=== PATIENT | male | born 1930 | race Caucasian/White ===

== ENCOUNTER → 2017-12-23 | Outpatient (CLI) | payer MEDICARE, MEDICAID ==
[~2017-12-23] MED LIST: ACET-2267 PO; AMLO5TAB2 PO; ASP325T PO; ASPI-586 PO; ATEN25TA PO; ATOR20TA66 PO; BISO1TAB3 PO; CHOL500044 PO; CLOP75TA PO; HYDR-757 PO; ISOS30TA7 PO; LANS15CA PO; LISI-556 PO; MECL25TA56 PO; NAPR-243 PO; OMEG-160 PO; RAMI10CA PO; [UNRECOGNIZED DRUG - REMARK]; [UNRECOGNIZED DRUG - REMARK]
--- NOTE | 2017-12-23 16:21 | Diagnostic Imaging Report ---
INDICATION: Chest pain. TIME OF EXAM: 3:43 p.m. COMPARISON: Comparison is made with prior study from 05/04/2010. FINDINGS: Tiny calcified nodules are noted in both lungs consistent with granulomas. No infiltrates are seen. There is no failure. No effusion or pneumothorax is identified. IMPRESSION: No acute cardiopulmonary process is detected. Dictated by: Dictated on workstation # [id number]
== END ==
LOC: RAD 15:12
PROVIDERS: ATTEND Internal Medicine
DX: R06.00 Dyspnea, unspecified (principal); R07.9 Chest pain, unspecified
CPT/HCPCS: 71046

== ENCOUNTER 2018-10-10 22:48 | Emergency (ER) | payer MEDICARE ==
[~2018-10-10] VITALS: Ht 167.6 cm; Wt 70.3 kg
[~2018-10-10 22:48] MED LIST changes: +HYDR-4226 PO; -HYDR-757 PO
[2018-10-10] MEDS ORDERED: RX-ONDANSETRON 4 MG ODT (ZOFRAN) PPK #4 PO STA (23:53)
[2018-10-11] MEDS ORDERED: TETANUS,DIPTH,PERTUSS P/F (BOOSTRIX) 0.5 ML VIAL IM ONE
[2018-10-11] MEDS ORDERED: LIDOCAINE/EPI 2% 1:100,00 (XYLOCAINE) 20 ML VIAL ONE (00:22)
--- NOTE | 2018-10-11 00:45 | NUR ---
6 MARK TO LEFT HAND PER DR. FUENTES.
[2018-10-11] MEDS ORDERED: SULF1TAB35 PO ×2 (00:48→00:50)
[2018-10-11] MEDS ORDERED: RX-TRIMETH/SULFA. 160-800 MG (BACTRIM DS) TAB PPK#2 PO STA (00:48)
--- NOTE | 2018-10-11 00:50 | ED Upper Extremity ---
General Chief Complaint: Laceration Stated Complaint: L HAND LAC Allergies and Home Medications Allergies Coded Allergies: Meperidine (Unverified Allergy, Unknown, 05/04/10) Penicillins (Unverified Allergy, Unknown, 09/06/11) Home Medications Acetaminophen 500 Mg Tablet, 500 MG PO QID, (Reported) Amlodipine Besylate 5 Mg Tablet, 5 MG PO DAILY, (Reported) Aspirin 81 Mg Tablet.dr, 81 MG PO DAILY, (Reported) Atenolol 25 Mg Tablet, 25 MG PO DAILY, (Reported) Atorvastatin Calcium 20 Mg Tablet, 20 MG PO DAILY, (Reported) Cholecalciferol (Vitamin D3) 5,000 Unit Tablet, 5,000 UNIT PO DAILY, (Reported) Clopidogrel Bisulfate 75 Mg Tablet, 1 EACH PO DAILY, (Reported) Hydrocodone/Acetaminophen 1 Each Tablet, 1 EACH PO HS PRN for PAIN Prescribed by: KELL VINCENT MD on 03/02/15 1700 Isosorbide Dinitrate 30 Mg Tablet, 1 EACH PO DAILY, (Reported) Lansoprazole 15 Mg Capsule.dr, 15 MG PO DAILY, (Reported) Lisinopril 5 Mg Tablet, 5 MG PO DAILY, (Reported) [place]-3/Dha/Epa/Fish Oil 1 Each Capsule, 2 EACH PO DAILY, (Reported) ["Leg Cramp Pills"] , 4 TAB DAILY, (Reported) Past Yxwsyea-Yeafra-Bikhqg Hx Patient Social History Recent Foreign Travel: No Contact w/Someone Who Travel: No Past Medical History Reproductive Disorders: No Physical Exam Vital Signs Capillary Refill : Height, Weight, BMI Height: 5'6" Weight: 170lbs. 11.0oz. 77.018379vp; BMI Method:Stated Progress/Results/Core Measures Results/Orders My Orders Orders - CHARLES FUENTES DO Rx-Ondansetron Po (Rx-Zofran Po) (10/10/18 23:53) Dipht,Pertuss(Acell),Tet Adult (Boostrix (10/11/18 00:00) Hand, Left, 3 Views (10/11/18 00:01) Lidocaine/Epi 2% 1:100,000 (Xylocaine/Ep (10/11/18 00:22) Wound Dressing-Ed (10/11/18 00:45) Medications Given in ED Current Medications Medications Dose Ordered Sig/Graciela Route Start Time Stop Time Status Last Admin Dose Admin Diphtheria/ Tetanus/Acell Pertussis 0.5 ml ONCE ONCE IM 10/11/18 00:00 10/11/18 00:01 DC 10/11/18 00:29 0.5 ML Departure Impression Primary Impression: LEFT HAND LACERATION AND CONTUSION Additional Impression: Kbmwdacqrr-rgxnzwelp-voxvsky (DPT) vaccination administered at current visit Disposition: HOME, SELF-CARE Condition: Stable Departure-Patient Inst. Referrals: LILIANA IRBY MD (PCP/Family) Primary Care Physician Patient Instructions: Laceration Repair With [place] (DC), Diphtheria and Tetanus Toxoids, and Acellular Pertussis Vaccine Add. Discharge Instructions: ICE TO AREA AT 20 MINUTE INTERVALS FOR FIRST 24 HOURS CLEAN WOUND TWICE A DAY WITH ANTIBACTERIAL SOAP AND WATER, OTHERWISE KEEP CLEAN AND DRY MARK OUT IN 10 DAYS--RETURN TO ER FOR REMOVAL TYLENOL NEEDED FOR PAIN FOLLOW UP WITH YOUR DR NEEDED All discharge instructions reviewed with patient and/or family. Voiced understanding. Scripts Sulfamethoxazole/Trimethoprim (Bactrim Ds Tablet) 1 Each Tablet 1 EACH PO BID, #20 TAB Prov: CHARLES FUENTES DO 10/11/18 CHARLES FUENTES DO Oct 11, 2018 00:50
[2018-10-11 01:10] VITALS: BP 165/75
--- NOTE | 2018-10-11 07:35 | Diagnostic Imaging Report ---
EXAM: HAND, LEFT, 3 VIEWS INDICATION: Dorsal left hand trauma with laceration. COMPARISON: None. FINDINGS: No fracture or malalignment. No suspicious osteoblastic or lytic lesions. No radiopaque foreign bodies. There are advanced degenerative changes throughout the carpal bones and radial ulnar joint. Chronic left ulnar styloid fracture. Mild degenerative changes within the IP joints. IMPRESSION: No acute radiographic findings in the left hand. Dictated by: Dictated on workstation # [id number]
== END 2018-10-11 01:14 | disposition home or self-care (01) ==
LOC: EDUNIT# 22:48 → ER 22:49
DX: S61.412A Laceration without foreign body of left hand, initial encounter (principal); Z88.0 Allergy status to penicillin; Z88.8 Allergy status to other drugs, medicaments and biological substances; Z79.82 Long term (current) use of aspirin; Z79.02 Long term (current) use of antithrombotics/antiplatelets; Z23 Encounter for immunization; X58.XXXA Exposure to other specified factors, initial encounter
CPT/HCPCS: 73130; 90471; 90715

== ENCOUNTER 2018-10-21 08:30 | Emergency (ER) | payer MEDICARE ==
[~2018-10-21] VITALS: Ht 167.6 cm; Wt 70.6 kg
[~2018-10-21 08:30] MED LIST changes: +SULF1TAB35 PO
--- OUTSIDE RECORDS SUMMARY | 2018-10-21 08:36 | XMS REPORT | Continuity of Care Document ---
Author Organization Unknown Address Unknown Allergies Active Description Code Type Severity Reaction Onset Reported/Identified Relationship to Patient Clinical Status Yes meperidine [id number] Drug Allergy Unknown N/A 05/04/2010 Yes Penicillins [id number] Drug Allergy Unknown N/A 09/06/2011 Medications There is no data. Problems Date Dx Coded Attending Type Code Diagnosis Diagnosed By 05/07/2010 Ot 386.30 LABYRINTHITIS NOS 05/07/2010 Ot 401.9 HYPERTENSION NOS 05/07/2010 Ot 443.9 PERIPH VASCULAR DIS NOS 05/07/2010 Ot 496 CHR AIRWAY OBSTRUCT NEC 05/07/2010 Ot 593.9 RENAL URETERAL DIS NOS 05/07/2010 Ot V15.82 HISTORY OF TOBACCO USE 03/02/2015 MELISA ARREOLA, KELL Oden Ot F17.211 03/02/2015 MELISA ARREOLA, KELL Oden Ot M25.551 03/02/2015 MELISA ARREOLA, KELL Oden Ot M51.16 03/02/2015 MELISA ARREOLA, KELL Oden Ot Z79.899 03/18/2015 SANYA PINEDA APRN Ot M54.30 12/26/2017 MAHAMED ARREOLA, LILIANA Carlos Ot R06.00 DYSPNEA, UNSPECIFIED 12/26/2017 LILIANA IRBY MD Ot R07.9 CHEST PAIN, UNSPECIFIED 12/29/2017 Ot N64.4 MASTODYNIA 12/29/2017 Ot N64.4 MASTODYNIA 12/29/2017 Ot N64.4 MASTODYNIA 12/29/2017 Ot R06.00 DYSPNEA, UNSPECIFIED 01/06/2018 LILIANA IRBY MD Ot N62 HYPERTROPHY OF BREAST 01/06/2018 LILIANA IRBY MD Ot N64.4 MASTODYNIA 01/25/2018 LILIANA IRBY MD Ot R06.00 DYSPNEA, UNSPECIFIED 01/25/2018 LILIANA IRBY MD Ot R07.9 CHEST PAIN, UNSPECIFIED 01/25/2018 LILIANA IRBY MD Ot N62 HYPERTROPHY OF BREAST 01/25/2018 LILIANA IRBY MD Ot N64.4 MASTODYNIA 02/01/2018 MAHAMED ARREOLA, LILIANA Carlos Ot R06.00 DYSPNEA, UNSPECIFIED 02/01/2018 LILIANA IRBY MD Ot R07.9 CHEST PAIN, UNSPECIFIED 02/01/2018 LILIANA IRBY MD Ot N62 HYPERTROPHY OF BREAST 02/01/2018 LILIANA IRBY MD Ot N64.4 MASTODYNIA 02/09/2018 LILIANA IRBY MD Ot R06.00 DYSPNEA, UNSPECIFIED 02/09/2018 LILIANA IRBY MD Ot R07.9 CHEST PAIN, UNSPECIFIED 02/09/2018 LILIANA IRBY MD Ot N62 HYPERTROPHY OF BREAST 02/09/2018 LILIANA IRBY MD Ot N64.4 MASTODYNIA 10/11/2018 [place] DO, CHARLES K Ot S61.412A LACERATION WITHOUT FOREIGN BODY OF LEFT 10/11/2018 GINA DOROBERTOA K Ot X58.XXXA EXPOSURE TO OTHER SPECIFIED FACTORS, INI 10/11/2018 GINA DOROBERTOA K Ot Z23 ENCOUNTER FOR IMMUNIZATION 10/11/2018 GINA DOROBERTOA K Ot Z79.02 SEWER CLEANER (CURRENT) USE OF ANTITHROMBOTI 10/11/2018 GINA DO, CHARLES K Ot Z79.82 SEWER CLEANER (CURRENT) USE OF ASPIRIN 10/11/2018 GINA DO CHARLES K Ot Z88.0 ALLERGY STATUS TO PENICILLIN 10/11/2018 GINA DO, CHARLES K Ot Z88.8 ALLERGY STATUS TO OTH DRUG/MEDS/BIOL SUB 10/16/2018 GINA DOCHARLES Ot S61.412A LACERATION WITHOUT FOREIGN BODY OF LEFT 10/16/2018 [place] DO CHARLES K Ot X58.XXXA EXPOSURE TO OTHER SPECIFIED FACTORS, INI 10/16/2018 GINA DO CHARLES K Ot Z23 ENCOUNTER FOR IMMUNIZATION 10/16/2018 GINA DO CHARLES K Ot Z79.02 SNF (CURRENT) USE OF ANTITHROMBOTI 10/16/2018 GINA DO CHARLES K Ot Z79.82 SEWER CLEANER (CURRENT) USE OF ASPIRIN 10/16/2018 UPPER TRACT DO CHARLES K Ot Z88.0 ALLERGY STATUS TO PENICILLIN 10/16/2018 GINA DO, CHARLES K Ot Z88.8 ALLERGY STATUS TO OTH DRUG/MEDS/BIOL SUB Procedures There is no data. Results There is no data. Encounters ACCT No. Visit Date/Time Discharge Status Pt. Type Provider Facility Loc./Unit Complaint [id number] 10/10/2018 22:49:00 10/11/2018 01:14:00 DIS Emergency GINA HERNANDEZ CHARLES Gonzalez [facility] ER L HAND LAC [id number] 01/05/2018 08:37:00 01/05/2018 23:59:59 CLS Outpatient LILIANA IRBY MD [facility] RAD BREAST PAIN [id number] 12/23/2017 15:12:00 12/23/2017 23:59:59 CLS Outpatient LILIANA IRBY MD [facility] RAD DYSPNEA [id number] 03/05/2015 14:43:00 03/18/2015 12:04:00 DIS Outpatient SANYA PINEDA APRN [facility] REHAB [id number] 03/02/2015 13:19:00 03/02/2015 17:06:00 DIS Emergency KELL VINCENT MD [facility] ER [id number] 01/05/2018 09:15:00 Document Registration [id number] 12/28/2017 16:22:00 Document Registration [id number] 05/04/2010 06:29:00 Document Registration
[2018-10-21 08:44] VITALS: BP 0/0
== END 2018-10-21 08:43 | disposition home or self-care (01) ==
LOC: EDUNIT# 08:30 → ER 08:31
DX: S61.412D Laceration without foreign body of left hand, subsequent encounter (principal); X58.XXXD Exposure to other specified factors, subsequent encounter

== ENCOUNTER 2018-11-08 15:01 | Emergency (ER) | payer MEDICARE ==
[~2018-11-08] VITALS: Ht 167.6 cm; Wt 67.4 kg
--- OUTSIDE RECORDS SUMMARY | 2018-11-08 15:06 | XMS REPORT | Continuity of Care Document ---
Author Organization Unknown Address Unknown Allergies Active Description Code Type Severity Reaction Onset Reported/Identified Relationship to Patient Clinical Status Yes meperidine [id number] Drug Allergy Unknown N/A 05/04/2010 Yes Penicillins [id number] Drug Allergy Unknown N/A 09/06/2011 Medications There [...] LILIANA IRBY MD Ot N64.4 MASTODYNIA 10/11/2018 GINA DO, CHARLES K Ot S61.412A LACERATION WITHOUT FOREIGN BODY OF LEFT 10/11/2018 [place] DO, CHARLES K Ot X58.XXXA EXPOSURE TO OTHER SPECIFIED FACTORS, INI 10/11/2018 GINA DO CHARLES K Ot Z23 ENCOUNTER FOR IMMUNIZATION 10/11/2018 [place] DO CHARLES K Ot Z79.02 WIRE TEMPERER (CURRENT) USE OF ANTITHROMBOTI 10/11/2018 GINA DO, CHARLES K Ot Z79.82 WIRE TEMPERER (CURRENT) USE OF ASPIRIN 10/11/2018 [place] DO CHARLES K Ot Z88.0 ALLERGY STATUS TO PENICILLIN 10/11/2018 [place] DO, CHARLES K Ot Z88.8 ALLERGY STATUS TO OTH DRUG/MEDS/BIOL SUB 10/16/2018 [place] DOROBERTOA K Ot S61.412A LACERATION WITHOUT FOREIGN BODY OF LEFT 10/16/2018 [place] DO, CHARLES K Ot X58.XXXA EXPOSURE TO OTHER SPECIFIED FACTORS, INI 10/16/2018 GINA DO CHARLES K Ot Z23 ENCOUNTER FOR IMMUNIZATION 10/16/2018 GINA DO, CHARLES K Ot Z79.02 [facility] (CURRENT) USE OF ANTITHROMBOTI 10/16/2018 GINA DO, CHARLES K Ot Z79.82 WIRE TEMPERER (CURRENT) USE OF ASPIRIN 10/16/2018 [place] DO, CHARLES K Ot Z88.0 ALLERGY STATUS TO PENICILLIN 10/16/2018 GINA DO, CHARLES K Ot Z88.8 ALLERGY STATUS TO OTH DRUG/MEDS/BIOL SUB 10/25/2018 KELL VINCENT MD Ot S61.412D LACERATION WITHOUT FOREIGN BODY OF LEFT 10/25/2018 KELL VINCENT MD Ot X58.XXXD EXPOSURE TO OTHER SPECIFIED FACTORS, SUB Procedures There is no data. Results There is no data. Encounters ACCT No. Visit Date/Time Discharge Status Pt. Type Provider Facility Loc./Unit Complaint [id number] 10/21/2018 08:31:00 10/21/2018 08:43:00 DIS Outpatient KELL VINCENT MD [facility] ER SUTURE REMOVAL [id number] 10/10/2018 22:49:00 10/11/2018 01:14:00 DIS Emergency CHARLES FUENTES DO [facility] ER L HAND LAC [id number] 01/05/2018 08:37:00 01/05/2018 23:59:59 CLS Outpatient LILIANA IRBY MD [facility] RAD BREAST PAIN [id number] 12/23/2017 15:12:00 12/23/2017 23:59:59 CLS Outpatient LILIANA IRBY MD [facility] RAD DYSPNEA [id number] 03/05/2015 14:43:00 03/18/2015 12:04:00 DIS Outpatient SANYA PINEDA APRN [facility] REHAB [id number] 03/02/2015 13:19:00 03/02/2015 17:06:00 DIS Emergency KELL VINCENT MD [facility] ER [id number] 01/05/2018 09:15:00 Document Registration [id number] 12/28/2017 16:22:00 Document Registration [id number] 05/04/2010 06:29:00 Document Registration
--- NOTE | 2018-11-08 15:18 | ED Upper Extremity ---
General Chief Complaint: Upper Extremity Stated Complaint: L ARM SWELLING Nursing Triage Note: PT STATES HE WOKE UP TUESDAY MORNING WITH SWELLING TO THE LT HAND AND PAIN INTO THE FOREARM. DENIES ANY TRAUMA. Nursing Sepsis Screen: No Definite Risk Source: patient Exam Limitations: no limitations History of Present Illness Date Seen by Provider: Nov 08, 2018 Time Seen by Provider: 15:16 Initial Comments This hemodialysis patient presents to ER with reports of left wrist and hand pain and swelling. This began 2 days ago, Tuesday morning upon awakening. Does not recall any injury. He's been afebrile. He just finished dialysis prior to coming here. Onset: just prior to arrival Severity: moderate Pain/Injury Location: left hand Method of Injury: unknown Modifying Factors: Worse With Movement Allergies and Home Medications Allergies Coded Allergies: Penicillins (Unverified Allergy, Unknown, 09/06/11) meperidine (Unverified Allergy, Unknown, 05/04/10) Home Medications Acetaminophen 500 Mg Tablet, 500 MG PO QID, (Reported) Amlodipine Besylate 5 Mg Tablet, 5 MG PO DAILY, (Reported) Aspirin 81 Mg Tablet.dr, 81 MG PO DAILY, (Reported) Atenolol 25 Mg Tablet, 25 MG PO DAILY, (Reported) Atorvastatin Calcium 20 Mg Tablet, 20 MG PO DAILY, (Reported) Cholecalciferol (Vitamin D3) 5,000 Unit Tablet, 5,000 UNIT PO DAILY, (Reported) Clopidogrel Bisulfate 75 Mg Tablet, 1 EACH PO DAILY, (Reported) Hydrocodone/Acetaminophen 1 Each Tablet, 1 EACH PO HS PRN for PAIN Prescribed by: KELL VINCENT MD on 03/02/15 1700 Isosorbide Dinitrate 30 Mg Tablet, 1 EACH PO DAILY, (Reported) Lansoprazole 15 Mg Capsule.dr, 15 MG PO DAILY, (Reported) Lisinopril 5 Mg Tablet, 5 MG PO DAILY, (Reported) [place]-3/Dha/Epa/Fish Oil 1 Each Capsule, 2 EACH PO DAILY, (Reported) Prednisone 20 Mg Tab, 40 MG PO DAILY Prescribed by: BEVERLEY CONTE on 11/08/18 170 Sulfamethoxazole/Trimethoprim 1 Each Tablet, 1 EACH PO BID Prescribed by: CHARLES FUENTES on 10/11/18 0050 ["Leg Cramp Pills"] , 4 TAB DAILY, (Reported) Patient Home Medication List Home Medication List Reviewed: Yes Review of Systems Constitutional: see HPI EENTM: see HPI Respiratory: no symptoms reported Cardiovascular: no symptoms reported Genitourinary: no symptoms reported Musculoskeletal: see HPI Skin: no symptoms reported Psychiatric/Neurological: No Symptoms Reported Past Ljcyivx-Yqbzby-Urxwld Hx Patient Social History Recent Foreign Travel: No Contact w/Someone Who Travel: No Recent Infectious Disease Expo: No Recent Hopitalizations: No Immunizations Up To Date Tetanus Booster (TDap): Less than 5yrs Past Medical History Surgeries: Yes (BONE SPURS ON BILAT FEET, CYST REMOVED FROM LOWER JAW, ARM A CHILD) Respiratory: Yes COPD Cardiac: Yes ("BLOCKED CAROTIDS") High Cholesterol, Irregular Heartbeat Neurological: Yes Neuropathy Reproductive Disorders: No Genitourinary: Yes Dialysis Gastrointestinal: Yes Musculoskeletal: Yes Arthritis, Gout Endocrine: No HEENT: No Cancer: No Psychosocial: No Integumentary: No Blood Disorders: No Physical Exam Vital Signs Vital Signs - First Documented 11/08/18 15:09 Temp 97.8 Pulse 68 Resp 20 B/P (MAP) 185/76 (112) Pulse Ox 95 O2 Delivery Room Air Capillary Refill : Greater Than 3 Seconds Height, Weight, BMI Height: 5'6" Weight: 148lbs. 11.0oz. 67.142567ly; 25.01 BMI Method:Stated General Appearance: WD/WN, no apparent distress Respiratory: no respiratory distress, no accessory muscle use Shoulder: normal inspection, non-tender Elbow/Forearm: normal inspection, non-tender Wrist: Yes limited ROM, Yes pain, Yes soft tissue tenderness, Yes swelling Hand: Left, soft tissue tenderness, swelling Neurologic/Psychiatric: alert, normal mood/affect, oriented x 3 Skin: normal color, warm/dry Progress/Results/Core Measures Results/Orders Lab Results Laboratory Tests Test 11/08/18 16:14 Range/Units White Blood Count 6.2 4.3-11.0 10^3/uL Red Blood Count 3.87 L 4.35-5.85 10^6/uL Hemoglobin 11.8 L 13.3-17.7 G/DL Hematocrit 35 L 40-54 % Mean Corpuscular Volume 91 80-99 FL Mean Corpuscular Hemoglobin 30 25-34 PG Mean Corpuscular Hemoglobin Concent 34 32-36 G/DL Red Cell Distribution Width 16.0 H 10.0-14.5 % Platelet Count 245 130-400 10^3/uL Mean Platelet Volume 11.7 H 7.4-10.4 FL Neutrophils (%) (Auto) 67 42-75 % Lymphocytes (%) (Auto) 17 12-44 % Monocytes (%) (Auto) 12 0-12 % Eosinophils (%) (Auto) 4 0-10 % Basophils (%) (Auto) 1 0-10 % Neutrophils # (Auto) 4.1 1.8-7.8 X 10^3 Lymphocytes # (Auto) 1.1 1.0-4.0 X 10^3 Monocytes # (Auto) 0.7 0.0-1.0 X 10^3 Eosinophils # (Auto) 0.2 0.0-0.3 10^3/uL Basophils # (Auto) 0.1 0.0-0.1 10^3/uL My Orders Orders - BEVERLEY CONTE APRN Forearm, Left, 2 Views (11/08/18 15:08) Hand, Left, 3 Views (11/08/18 15:08) Cbc With Automated Diff (11/08/18 16:08) Us Venous Upper Ext Lt (11/08/18 16:08) Prednisone Tablet (Deltasone Tablet) (11/08/18 17:15) Vital Signs/I&O 11/08/18 15:09 Temp 97.8 Pulse 68 Resp 20 B/P (MAP) 185/76 (112) Pulse Ox 95 O2 Delivery Room Air Blood Pressure Mean: 112 Departure Communication (Admissions) 1708-since tomorrow is november I will order a double dose of prednisone here, 40 mg to be taken today and he can pocket 40 mg and take them tomorrow since his pharmacy will be closed. I discussed with him the likely diagnosis of gout/pseudogout with an alternative diagnosis of septic joint though this with the far less common. Discussed with him the way to determine this is distinctly needle into the joint. He does not want to do that at this time, will treat for gout/pseudogout with steroids given his renal failure and he'll return for any redness fevers or worsening swelling. At that point (if it worsens), he would agree to arthrocentesis. Impression Primary Impression: Arthritis of left wrist Disposition: 01 HOME, SELF-CARE Condition: Stable Departure-Patient Inst. Decision time for Depature: 17:01 Referrals: LILIANA IRBY MD (PCP/Family) Primary Care Physician Patient Instructions: Arthritis and Exercise Add. Discharge Instructions: 1. Return to ER for any fevers, increased swelling or redness. Follow-up with your doctor on Tuesday for recheck. Return to ER for any worsening promptly. Take steroids as directed for total of 3 days. We've given you 2 days worth here in the emergency room, the prescription I sent to your pharmacy is actually for 3 days worth but you'll only need 1 day. He should only take steroids for 3 days. All discharge instructions reviewed with patient and/or family. Voiced understanding. Scripts Prednisone (Prednisone) 20 Mg Tab 40 MG PO DAILY, #6 TAB 0 Refills Prov: BEVERLEY CONTE APRN 11/08/18 BEVERLEY CONTE APRN Nov 08, 2018 15:18
--- NOTE | 2018-11-08 16:07 | Diagnostic Imaging Report ---
INDICATION: Left forearm pain. EXAMINATION: AP and lateral views of the left forearm were obtained. FINDINGS: No fracture or acute bony abnormality is seen. There is no erosive bony lesion. There are underlying degenerative changes of the radiocarpal joint. IMPRESSION: No acute abnormality of the left forearm. Chronic changes at the radiocarpal joint. Dictated by: Dictated on workstation # [id number]
--- NOTE | 2018-11-08 16:07 | Diagnostic Imaging Report ---
INDICATION: Swelling and pain of the left hand. COMPARISON: None. FINDINGS: Three views of the left hand show no fractures, dislocations, or other acute bony abnormalities identified. 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 Otherwise, joint spaces are well maintained throughout. There is mild generalized soft tissue swelling. No radiopaque foreign bodies are identified. IMPRESSION: 1. No acute fracture or dislocation of the left hand. 2. Moderate osteoarthritic changes. Dictated by: Dictated on workstation # [id number]
[2018-11-08 16:22] LABS: BASOPHILS # (AUTO) 0.1 10^3/uL (0.0-0.1); BASOPHILS % (AUTO) 1 % (0-10); EOSINOPHILS # (AUTO) 0.2 10^3/uL (0.0-0.3); EOSINOPHILS % (AUTO) 4 % (0-10); HEMATOCRIT 35 % (40-54); HEMOGLOBIN 11.8 G/DL (13.3-17.7); LYMPHOCYTES # (AUTO) 1.1 X 10^3 (1.0-4.0); LYMPHOCYTES % (AUTO) 17 % (12-44); MEAN CORPUSCULAR HGB CONC 34 G/DL (32-36); MEAN CORPUSCULAR VOLUME 91 FL (80-99); MEAN PLATELET VOLUME 11.7 FL (7.4-10.4); MONOCYTES # (AUTO) 0.7 X 10^3 (0.0-1.0); MONOCYTES % (AUTO) 12 % (0-12); NEUTROPHILS # (AUTO) 4.1 X 10^3 (1.8-7.8); NEUTROPHILS % (AUTO) 67 % (42-75); PLATELET COUNT 245 10^3/uL (130-400); WHITE BLOOD COUNT 6.2 10^3/uL (4.3-11.0)
[2018-11-08 16:23] LABS: MEAN CORPUSCULAR HEMOGLOBIN 30 PG (25-34)
[2018-11-08] MEDS ORDERED: PRD20T PO (17:02)
--- NOTE | 2018-11-08 17:14 | Diagnostic Imaging Report ---
PROCEDURE: US venous upper extremity, left. TECHNIQUE: Multiple realtime grayscale images were obtained of left upper extremity in various projections. Additional spectral analysis and color Doppler duplex images were also obtained. INDICATION: Left arm pain and swelling. FINDINGS: The left internal jugular vein as well as left subclavian and axillary vein are patent. The brachial vein is patent. The radial and ulnar veins are patent. Cephalic vein, as well as basilic vein, are patent. No thrombus is seen. There is no fluid collection. IMPRESSION: No evidence of left upper extremity DVT. Dictated by: Dictated on workstation # [id number]
[2018-11-08] MEDS ORDERED: predniSONE 20 MG TAB PO ONE ×2 (17:15)
[2018-11-08 17:19] VITALS: BP 174/82
== END 2018-11-08 17:18 | disposition home or self-care (01) ==
LOC: EDUNIT# 15:01 → ER 15:02
DX: M19.032 Primary osteoarthritis, left wrist (principal); J44.9 Chronic obstructive pulmonary disease, unspecified; E78.00 Pure hypercholesterolemia, unspecified; G62.9 Polyneuropathy, unspecified; Z99.2 Dependence on renal dialysis; Z88.0 Allergy status to penicillin; Z88.5 Allergy status to narcotic agent; Z79.82 Long term (current) use of aspirin; Z79.02 Long term (current) use of antithrombotics/antiplatelets
CPT/HCPCS: 36415; 73090; 73130; 85025

== ENCOUNTER 2020-05-03 09:54 | Emergency (ER) | payer MEDICARE ==
[~2020-05-03] VITALS: Ht 167.7 cm; Wt 72.6 kg
[~2020-05-03 09:54] MED LIST changes: +PRD20T PO
[2020-05-03 10:20] VITALS: BP 177/74
--- NOTE | 2020-05-03 10:37 | ED General ---
General Stated Complaint: FEVER,COUGH,BEEN EXPOSED Source of Information: Patient Exam Limitations: No Limitations History of Present Illness Date Seen by Provider: May 03, 2020 Time Seen by Provider: 10:30 Initial Comments This is an 89-year-old male who presents to the emergency room today with a chief complaint of wanting a Covid test. Patient states his son recently tested positive and he has been around him and his family has been encouraging him to get a Covid test. Patient has absolutely 0 symptoms at this time. He denies any earache, sore throat, nasal congestion. He denies cough, shortness of b reath, chest pain. He denies abdominal pain, nausea, vomiting, diarrhea. Patient is completely asymptomatic. No other complaints of illness or injury are noted. All other review of systems reviewed and negative except as stated above. Timing/Duration: Other Associated Systoms: Denies Symptoms Allergies and Home Medications Allergies Coded Allergies: Penicillins (Unverified Allergy, Unknown, 09/06/11) meperidine (Unverified Allergy, Unknown, 05/04/10) Home Medications Acetaminophen 500 Mg Tablet, 500 MG PO QID, (Reported) Amlodipine Besylate 5 Mg Tablet, 5 MG PO DAILY, (Reported) Aspirin 81 Mg Tablet.dr, 81 MG PO DAILY, (Reported) Atenolol 25 Mg Tablet, 25 MG PO DAILY, (Reported) Atorvastatin Calcium 20 Mg Tablet, 20 MG PO DAILY, (Reported) Cholecalciferol (Vitamin D3) 5,000 Unit Tablet, 5,000 UNIT PO DAILY, (Reported) Clopidogrel Bisulfate 75 Mg Tablet, 1 EACH PO DAILY, (Reported) Hydrocodone/Acetaminophen 1 Each Tablet, 1 EACH PO HS PRN for PAIN Prescribed by: KELL VINCENT MD on 03/02/15 170 Isosorbide Dinitrate 30 Mg Tablet, 1 EACH PO DAILY, (Reported) Lansoprazole 15 Mg Capsule.dr, 15 MG PO DAILY, (Reported) Lisinopril 5 Mg Tablet, 5 MG PO DAILY, (Reported) [place]-3/Dha/Epa/Fish Oil 1 Each Capsule, 2 EACH PO DAILY, (Reported) Prednisone 20 Mg Tab, 40 MG PO DAILY Prescribed by: BEVERLEY CONTE on 11/08/18 170 Sulfamethoxazole/Trimethoprim 1 Each Tablet, 1 EACH PO BID Prescribed by: CHARLES FUENTES on 10/11/18 0050 ["Leg Cramp Pills"] , 4 TAB DAILY, (Reported) Patient Home Medication List Home Medication List Reviewed: Yes Review of Systems Review of Systems Constitutional: no symptoms reported, see HPI EENTM: no symptoms reported Respiratory: no symptoms reported Cardiovascular: no symptoms reported Gastrointestinal: no symptoms reported Genitourinary: no symptoms reported Musculoskeletal: no symptoms reported Skin: no symptoms reported All Other Systems Reviewed Negative Unless Noted: Yes Past Qgumghc-Ccdbil-Ooedpu Hx Patient Social History Type Used: Cigars, Cigarettes, Pipe Former Smoker, Quit: Nov 08, 2008 Recent Hopitalizations: No Immunizations Up To Date Tetanus Booster (TDap): Unknown Seasonal Allergies Seasonal Allergies: No Past Medical History Surgeries: Yes (BONE SPURS ON BILAT FEET, CYST REMOVED FROM LOWER JAW, ARM A CHILD) Orthopedic Respiratory: Yes COPD Cardiac: Yes Coronary Artery Disease, High Cholesterol, Hypertension Neurological: No Neuropathy Reproductive Disorders: No Genitourinary: Yes Dialysis Gastrointestinal: Yes Musculoskeletal: No Arthritis, Gout Endocrine: No HEENT: No Cancer: No Psychosocial: No Integumentary: No Blood Disorders: No Physical Exam Vital Signs Vital Signs - First Documented 05/03/20 10:20 Temp 36.9 Pulse 64 Resp 20 B/P (MAP) 177/74 (108) Pulse Ox 97 O2 Delivery Room Air Capillary Refill : Height, Weight, BMI Height: 5'6" Weight: 148lbs. 11.0oz. [id number]; 25.01 BMI Method:Stated General Appearance: No Apparent Distress, WD/WN Eyes: Bilateral Eye Normal Inspection, Bilateral Eye PERRL, Bilateral Eye EOMI Neck: Full Range of Motion, Normal Inspection, Non Tender, Supple Respiratory: Lungs Clear, Normal Breath Sounds Cardiovascular: Regular Rate, Rhythm Gastrointestinal: Normal Bowel Sounds, Non Tender, Soft Back: Normal Inspection Extremity: Normal Capillary Refill, Normal Inspection, Normal Range of Motion, Non Tender Neurologic/Psychiatric: Alert, Oriented x3, No Motor/Sensory Deficits, Normal Mood/Affect, spinner fixer II-XII Norm as Tested Skin: Normal Color, Warm/Dry Progress/Results/Core Measures Suspected Sepsis SIRS Temperature: Pulse: Respiratory Rate: Blood Pressure / Mean: Results/Orders Lab Results Laboratory Tests Test 05/03/20 10:28 Range/Units Coronavirus 2019 (JEN) Positive H Negative My Orders Orders - GINETTE SYKES MD Covid 19 Inhouse Test (05/03/20 10:37) Vital Signs/I&O 05/03/20 10:20 Temp 36.9 Pulse 64 Resp 20 B/P (MAP) 177/74 (108) Pulse Ox 97 O2 Delivery Room Air Capillary Refill : Progress Note : Progress Note Patient was noted to be Covid positive. Patient is counseled on quarantine. He verbalizes understanding all questions are sought and answered he is stable for discharge. Departure Impression Primary Impression: Coronavirus infection Disposition: HOME, SELF-CARE Condition: Stable Departure-Patient Inst. Decision time for Depature: 11:51 Referrals: LILIANA IRBY MD (PCP/Family) Primary Care Physician Patient Instructions: Coronavirus Disease 2019 (COVID-19) Overview Add. Discharge Instructions: Drink plenty of fluids to stay well-hydrated. Follow-up with your primary care physician this week. Return to the emergency room if you have any worsening symptoms of cough, shortness of breath or fever. Alternate Tylenol and ibuprofen at home as needed for temperature over 100.4. Copy Copies To 1: LILIANA IRBY MD, KATHRYN M MD May 03, 2020 10:37
== END 2020-05-03 12:15 | disposition home or self-care (01) ==
LOC: EDUNIT# 09:54 → ER 09:58
DX: U07.1 COVID-19 (principal); J44.9 Chronic obstructive pulmonary disease, unspecified; I10 Essential (primary) hypertension; E78.00 Pure hypercholesterolemia, unspecified; I25.10 Atherosclerotic heart disease of native coronary artery without angina pectoris; Z88.0 Allergy status to penicillin; Z88.5 Allergy status to narcotic agent; Z87.891 Personal history of nicotine dependence; Z79.82 Long term (current) use of aspirin; Z79.52 Long term (current) use of systemic steroids
CPT/HCPCS: 99282; U0002; 87635

== ENCOUNTER 2020-05-04 18:32 | Emergency (ER) | payer MEDICARE ==
[~2020-05-04] VITALS: Ht 167 cm; Wt 72.6 kg
--- NOTE | 2020-05-04 19:09 | ED Respiratory ---
General Chief Complaint: Respiratory Problems Stated Complaint: COVID + SOA Nursing Triage Note: patient reports having SOA and being told his oxygen saturation was in the 70s after dialysis Source: patient Exam Limitations: no limitations History of Present Illness Date Seen by Provider: May 04, 2020 Time Seen by Provider: 19:09 Initial Comments Brought to ER by his daughter with reports of shortness of breath. He was told that his oxygen saturation was 70% while at dialysis treatment center. He gets hemodialysis Tuesday. He received a full course of it tonight. He was diagnosed with Covid yesterday. Oxygen saturation is 100% on room air upon arrival here. Timing/Duration: constant Severity: moderate Associated Symptoms: cough, shortness of breath Allergies and Home Medications Allergies Coded Allergies: Penicillins (Unverified Allergy, Unknown, 09/06/11) meperidine (Unverified Allergy, Unknown, 05/04/10) Home Medications Acetaminophen 500 Mg Tablet, 500 MG PO QID, (Reported) Amlodipine Besylate 5 Mg Tablet, 5 MG PO DAILY, (Reported) Aspirin 81 Mg Tablet.dr, 81 MG PO DAILY, (Reported) Atenolol 25 Mg Tablet, 25 MG PO DAILY, (Reported) Atorvastatin Calcium 20 Mg Tablet, 20 MG PO DAILY, (Reported) Cholecalciferol (Vitamin D3) 5,000 Unit Tablet, 5,000 UNIT PO DAILY, (Reported) Clopidogrel Bisulfate 75 Mg Tablet, 1 EACH PO DAILY, (Reported) Hydrocodone/Acetaminophen 1 Each Tablet, 1 EACH PO HS PRN for PAIN Prescribed by: KELL VINCENT MD on 03/02/15 1700 Isosorbide Dinitrate 30 Mg Tablet, 1 EACH PO DAILY, (Reported) Lansoprazole 15 Mg Capsule.dr, 15 MG PO DAILY, (Reported) Lisinopril 5 Mg Tablet, 5 MG PO DAILY, (Reported) [place]-3/Dha/Epa/Fish Oil 1 Each Capsule, 2 EACH PO DAILY, (Reported) Prednisone 20 Mg Tab, 40 MG PO DAILY Prescribed by: BEVERLEY CONTE on 11/08/18 170 Sulfamethoxazole/Trimethoprim 1 Each Tablet, 1 EACH PO BID Prescribed by: CHARLES FUENTES on 10/11/18 0050 ["Leg Cramp Pills"] , 4 TAB DAILY, (Reported) Patient Home Medication List Home Medication List Reviewed: Yes Review of Systems Review of Systems Constitutional: see HPI EENTM: see HPI Respiratory: see HPI, cough, short of breath Cardiovascular: no symptoms reported Genitourinary: no symptoms reported Musculoskeletal: no symptoms reported Skin: no symptoms reported Psychiatric/Neurological: No Symptoms Reported Hematologic/Lymphatic: No Symptoms Reported Immunological/Allergic: no symptoms reported Past Kxrtxek-Mqntkv-Gzncxr Hx Patient Social History Alcohol Use: Denies Use Recreational Drug Use: No Type Used: Cigars, Cigarettes, Pipe Former Smoker, Quit: Nov 08, 2008 Recent Foreign Travel: No Contact w/Someone Who Travel: No Recent Infectious Disease Expo: No Recent Hopitalizations: No Immunizations Up To Date Tetanus Booster (TDap): Unknown Seasonal Allergies Seasonal Allergies: No Past Medical History Surgeries: Yes (BONE SPURS ON BILAT FEET, CYST REMOVED FROM LOWER JAW, ARM A CHILD) Orthopedic Respiratory: Yes COPD Cardiac: Yes Coronary Artery Disease, High Cholesterol, Hypertension Neurological: No Neuropathy Reproductive Disorders: No Genitourinary: Yes Dialysis Gastrointestinal: Yes Musculoskeletal: No Arthritis, Gout Endocrine: No HEENT: No Cancer: No Psychosocial: No Integumentary: No Blood Disorders: No Physical Exam Vital Signs - First Documented 05/04/20 19:01 Temp 36.6 Pulse 92 Resp 14 B/P (MAP) 169/85 (113) Pulse Ox 100 O2 Delivery Room Air Capillary Refill : Less Than 3 Seconds Height: 5'6" Weight: 148lbs. 11.0oz. 67.401763dh; 26.00 BMI Method:Stated General Appearance: WD/WN, no apparent distress, other (Slightly tachypneic w ith respiratory rate of 24 but oxygen saturation of 100% on room air.) Eyes: Bilateral Eye Normal Inspection, Bilateral Eye PERRL, Bilateral Eye EOMI HEENT: PERRL/EOMI, normal ENT inspection Neck: non-tender, full range of motion Respiratory: normal breath sounds, no respiratory distress, no accessory muscle use Cardiovascular: regular rate, rhythm, no murmur Gastrointestinal: normal bowel sounds, soft Neurologic/Psychiatric: alert, normal mood/affect, oriented x 3 Skin: normal color, warm/dry Progress/Results/Core Measures Suspected Sepsis Recent Fever Within 48 Hours: No Infection Criteria Present: None New/Unexplained Altered Menta: No Sepsis Screen: No Definite Risk SIRS Temperature: Pulse: 92 Respiratory Rate: 14 Laboratory Tests 05/04/20 19:08: White Blood Count 6.4 Blood Pressure 169 /85 Mean: 113 Laboratory Tests 05/04/20 19:08: Creatinine 3.49H, Platelet Count 249, Total Bilirubin 0.5 Results/Orders Lab Results Laboratory Tests Test 05/04/20 19:08 Range/Units White Blood Count 6.4 4.3-11.0 10^3/uL Red Blood Count 3.78 L 4.30-5.52 10^6/uL Hemoglobin 12.5 L 13.3-17.7 g/dL Hematocrit 38 L 40-54 % Mean Corpuscular Volume 99 80-99 fL Mean Corpuscular Hemoglobin 33 25-34 pg Mean Corpuscular Hemoglobin Concent 33 32-36 g/dL Red Cell Distribution Width 15.7 H 10.0-14.5 % Platelet Count 249 130-400 10^3/uL Mean Platelet Volume 11.5 9.0-12.2 fL Immature Granulocyte % (Auto) 3 % Neutrophils (%) (Auto) 57 42-75 % Lymphocytes (%) (Auto) 24 12-44 % Monocytes (%) (Auto) 13 H 0-12 % Eosinophils (%) (Auto) 1 0-10 % Basophils (%) (Auto) 1 0-10 % Neutrophils # (Auto) 3.6 1.8-7.8 10^3/uL Lymphocytes # (Auto) 1.6 1.0-4.0 10^3/uL Monocytes # (Auto) 0.8 0.0-1.0 10^3/uL Eosinophils # (Auto) 0.1 0.0-0.3 10^3/uL Basophils # (Auto) 0.1 0.0-0.1 10^3/uL Immature Granulocyte # (Auto) 0.2 H 0.0-0.1 10^3/uL Sodium Level 139 135-145 MMOL/L Potassium Level 3.5 L 3.6-5.0 MMOL/L Chloride Level 94 L 98-107 MMOL/L Carbon Dioxide Level 26 21-32 MMOL/L Anion Gap 19 H 5-14 MMOL/L Blood Urea Nitrogen 25 H 7-18 MG/DL Creatinine 3.49 H 0.60-1.30 MG/DL Estimat Glomerular Filtration Rate 17 BUN/Creatinine Ratio 7 Glucose Level 129 H 70-105 MG/DL Calcium Level 9.5 8.5-10.1 MG/DL Corrected Calcium 9.1 8.5-10.1 MG/DL Total Bilirubin 0.5 0.1-1.0 MG/DL Aspartate Amino Transf (AST/SGOT) 32 5-34 U/L Alanine Aminotransferase (ALT/SGPT) 24 0-55 U/L Alkaline Phosphatase 82 40-136 U/L Total Protein 9.2 H 6.4-8.2 GM/DL Albumin 4.5 3.2-4.5 GM/DL My Orders Orders - BEVERLEY CONTE APRN Cbc With Automated Diff (05/04/20 19:05) Comprehensive Metabolic Panel (05/04/20 19:05) Chest 1 View, Ap/Pa Only (05/04/20 19:05) Ekg Tracing (05/04/20 19:05) Vital Signs/I&O 05/04/20 19:01 Temp 36.6 Pulse 92 Resp 14 B/P (MAP) 169/85 (113) Pulse Ox 100 O2 Delivery Room Air Capillary Refill : Less Than 3 Seconds Blood Pressure Mean: 113 Diagnostic Imaging Diagonstic Imaging: Xray Plain Films/CT/US/NM/MRI: chest Comments NAME: [facility] REC#: [id number] PT STATUS: REG ER : 1932 PHYSICIAN: BEVERLEY CONTE APRN ADMIT DATE: 05/04/20/ER Draft Date of Exam:05/04/20 CHEST 1 VIEW, AP/PA ONLY EXAMINATION: Chest 1 view. HISTORY: Shortness of breath. COMPARISON: 12/13/2017. FINDINGS: The lungs are clear without edema or pneumonia. No pleural effusion or pneumothorax. Heart size is normal. IMPRESSION: Clear lungs. Dictated on workstation # [id number] Dict: 05/04/201930 Trans: 05/04/201932 [facility] [id number] Interpreted by: LILIANA PINEDA MD Electronically signed by: Departure Communication (Admissions) I did discuss with him the risks and emergency use authorization and experimental nature of Bamlanivimab. He would qualify for treatment with this. He wants to talk to his dr Dr Zepeda next week. Discussed with him that hospital would call him tomorrow 2016-O2 sats remain 100%on room air. Impression Primary Impression: Coronavirus infection Disposition: HOME, SELF-CARE Condition: Stable Departure-Patient Inst. Decision time for Depature: 19:32 Referrals: LILIANA ZEPEDA MD (PCP/Family) Primary Care Physician Patient Instructions: Cough, Adult (DC) Add. Discharge Instructions: 1. You meet criteria to receive a monoclonal antibody infusion called Chasity rahman. Your oxygen saturation was between 97 and 100% during your ER stay. Hospital will call you tomorrow to schedule infusion of this monoclonal antibody. Please review the fact sheets that are attached to your discharge papers if you have any questions. All discharge instructions reviewed with patient and/or family. Voiced understanding. BEVERLEY CONTE [employer] May 04, 2020 19:09
[2020-05-04 19:34] LABS: BASOPHILS # (AUTO) 0.1 10^3/uL (0.0-0.1); BASOPHILS % (AUTO) 1 % (0-10); EOSINOPHILS # (AUTO) 0.1 10^3/uL (0.0-0.3); EOSINOPHILS % (AUTO) 1 % (0-10); HEMATOCRIT 38 % (40-54); HEMOGLOBIN 12.5 g/dL (13.3-17.7); LYMPHOCYTES # (AUTO) 1.6 10^3/uL (1.0-4.0); LYMPHOCYTES % (AUTO) 24 % (12-44); MEAN CORPUSCULAR HEMOGLOBIN 33 pg (25-34); MEAN CORPUSCULAR HGB CONC 33 g/dL (32-36); MEAN CORPUSCULAR VOLUME 99 fL (80-99); MEAN PLATELET VOLUME 11.5 fL (9.0-12.2); MONOCYTES # (AUTO) 0.8 10^3/uL (0.0-1.0); MONOCYTES % (AUTO) 13 % (0-12); NEUTROPHILS # (AUTO) 3.6 10^3/uL (1.8-7.8); NEUTROPHILS % (AUTO) 57 % (42-75); PLATELET COUNT 249 10^3/uL (130-400); WHITE BLOOD COUNT 6.4 10^3/uL (4.3-11.0)
--- NOTE | 2020-05-04 19:34 | Diagnostic Imaging Report ---
EXAMINATION: Chest 1 view. HISTORY: Shortness of breath. COMPARISON: 12/13/2017. FINDINGS: The lungs are clear without edema or pneumonia. No pleural effusion or pneumothorax. Heart size is normal. IMPRESSION: Clear lungs. Dictated by: Dictated on workstation # [id number]
[2020-05-04 19:55] LABS: ALBUMIN 4.5 GM/DL (3.2-4.5); BILIRUBIN,TOTAL 0.5 MG/DL (0.1-1.0); CALCIUM 9.5 MG/DL (8.5-10.1); CREATININE SERUM 3.49 MG/DL (0.60-1.30); POTASSIUM 3.5 MMOL/L (3.6-5.0); TOTAL PROTEIN 9.2 GM/DL (6.4-8.2)
[2020-05-04 20:24] VITALS: BP 154/80
== END 2020-05-04 20:45 | disposition home or self-care (01) ==
LOC: EDUNIT# 18:32 → ER 18:34
DX: U07.1 COVID-19 (principal); I10 Essential (primary) hypertension; I25.10 Atherosclerotic heart disease of native coronary artery without angina pectoris; J44.9 Chronic obstructive pulmonary disease, unspecified; E78.00 Pure hypercholesterolemia, unspecified; Z87.891 Personal history of nicotine dependence; Z88.0 Allergy status to penicillin; Z88.5 Allergy status to narcotic agent; Z79.52 Long term (current) use of systemic steroids; Z79.82 Long term (current) use of aspirin
CPT/HCPCS: 36415; 71045; 80053; 85025; 93005

== ENCOUNTER → 2020-08-26 | Outpatient (CLI) | payer MEDICARE ==
[~2020-08-26] MED LIST changes: -LISI-556 PO; +LISI-729 PO
--- NOTE | 2020-08-26 15:43 | Diagnostic Imaging Report ---
PROCEDURE: US carotid duplex, bilateral. TECHNIQUE: Multiple real-time grayscale images were obtained over the carotid arteries in various projections, bilaterally. Additional spectral analysis and color Doppler duplex images were also obtained. INDICATION: Occluded internal carotid artery. COMPARISON: None available. FINDINGS: The left internal carotid artery is completely occluded with no identifiable waveform. There is elevated velocity in the left external carotid artery of 2.1 m/s. Peak velocity in the left common carotid artery is 0.6 m/s flow in the left vertebral artery is antegrade. Right common carotid and internal carotid artery velocities are normal with small amount of plaquing seen at the bifurcation. Elevated velocities are seen in the external carotid artery of 1.7 m/s. Right vertebral artery flow is antegrade. IMPRESSION: 1. Occluded left internal carotid artery. 2. Mild stenosis of the right internal carotid artery. 3. Elevated velocities in both external carotid arteries consistent with hemodynamically significant external carotid artery stenosis bilaterally. Parameters based on the consensus panel Maxwell-Scale and Doppler ultrasound criteria published March 2003, Radiology, Volume 229. DOPPLER (peak systolic velocity M/S Right Left CCA .68 NA ICA Proximal .74 NA ICA Mid .75 NA ICA Distal .85 NA RATIO 1.2 NA ECA 1.70 2.1 VERT .64 .44 Dictated by: Dictated on workstation # [id number]
== END ==
LOC: RAD 14:45
PROVIDERS: ATTEND Nurse Practitioner Family
DX: I65.23 Occlusion and stenosis of bilateral carotid arteries (principal); M54.2 Cervicalgia
CPT/HCPCS: 93880

== ENCOUNTER → 2020-09-02 | Outpatient (CLI) | payer MEDICARE ==
--- NOTE | 2020-09-02 14:18 | Diagnostic Imaging Report ---
PROCEDURE: CT head and CT cervical spine without contrast. TECHNIQUE: Multiple contiguous axial images were obtained through the brain and cervical spine without the use of intravenous contrast. Sagittal and coronal reformations through the cervical spine were then performed. Auto Exposure Controls were utilized during the CT exam to meet ALARA standards for radiation dose reduction. INDICATION: Dizziness, headache after fall. COMPARISON: None available. FINDINGS: Head: Global atrophy is present. No intracranial hyperdense hemorrhage or space-occupying mass. No hydrocephalus or midline shift. Periventricular and deep white matter hypoattenuation is most compatible with chronic microvascular ischemic disease. No acute skull fracture. Mastoid air cells are clear. Paranasal sinuses are also clear. Orbits are normal in appearance. Cervical spine: Straightening of cervical spine without traumatic subluxation or acute fracture. No high-grade spinal stenosis. There does appear to be mild spinal stenosis at C5-C6 and C6-C7 due to partially calcified posterior disc protrusions. Moderate right and mild left foraminal narrowing at C5-C6 due to uncovertebral joint hypertrophy and facet osteoarthritis. There is a stent present within the right ICA. Lung apices are clear. IMPRESSION: 1. No acute intracranial hemorrhage or skull fracture. 2. No acute fracture or traumatic malalignment in the cervical spine. Dictated by: Dictated on workstation # [id number]
== END ==
LOC: RAD 13:48
PROVIDERS: ATTEND Nurse Practitioner Family
DX: R51.9 Headache, unspecified (principal); R42 Dizziness and giddiness; W19.XXXA Unspecified fall, initial encounter; Z95.828 Presence of other vascular implants and grafts
CPT/HCPCS: 70450; 72125

== ENCOUNTER → 2021-02-16 | Outpatient (CLI) | payer MEDICARE ==
[~2021-02-16] MED LIST changes: -SULF1TAB35 PO; +SULF1TAB38 PO
--- NOTE | 2021-02-16 18:39 | Diagnostic Imaging Report ---
INDICATION: Shortness of breath. Comparison with 12/23/2017. FINDINGS: Lungs are well-aerated. There is concern of a possible nodule developing in the right upper lobe laterally. There are several calcified granuloma noted in the lungs bilaterally. The heart is not enlarged. Aorta is densely calcified. No pneumothorax or pleural effusion. No bony abnormalities. IMPRESSION: Concern of developing nodule laterally in the right upper lung. This was not present in 2018. Would consider either follow-up chest x-ray or CT scan. Dictated by: Dictated on workstation # [id number]
== END ==
LOC: RAD 15:58
PROVIDERS: ATTEND Internal Medicine
DX: I35.0 Nonrheumatic aortic (valve) stenosis (principal); Z99.2 Dependence on renal dialysis
CPT/HCPCS: 71046

== ENCOUNTER → 2021-02-19 | Outpatient (CLI) | payer MEDICARE ==
--- NOTE | 2021-02-19 16:53 | Diagnostic Imaging Report ---
PROCEDURE: CT chest without contrast. TECHNIQUE: Multiple contiguous axial images were obtained through the chest without the use of intravenous contrast. Auto Exposure Controls were utilized during the CT exam to meet ALARA standards for radiation dose reduction. INDICATION: Abnormal chest x-ray. Right lung nodule. Short of breath There is a 18 x 20 mm slightly spiculated mass in the right upper lobe laterally. Although this may represent localized infiltrate neoplasm needs to be excluded. The remainder of the lungs are clear. There is no effusion or pneumothorax. There is no mediastinal or hilar lymphadenopathy. There is calcification of the thoracic aorta with no aneurysmal dilatation. There is a small hiatal hernia present. No acute bony abnormality is seen. Images of the upper abdomen shows small gallstones layering in the dependent portion of the gallbladder. There is a low-density lesion on the right kidney which is likely a cyst. No liver or spleen lesions are evident in the portions of the liver and spleen visualized. IMPRESSION: There is a spiculated density in the right upper lobe that represents neoplasm until proven otherwise. This could be evaluated further with PET scan and/or biopsied using CT guidance. There is cholelithiasis. Dictated by: Dictated on workstation # [id number]
== END ==
LOC: RAD 14:15
PROVIDERS: ATTEND Internal Medicine
DX: J98.4 Other disorders of lung (principal); R91.1 Solitary pulmonary nodule
CPT/HCPCS: 71250

== ENCOUNTER 2021-03-30 07:18 | Outpatient (CLI) | payer MEDICARE ==
[~2021-03-30] VITALS: Ht 167.7 cm; Wt 72.7 kg
[2021-03-30] VITALS (12 sets, daily range): BP systolic 114–155; BP diastolic 52–77
[~2021-03-30 07:18] MED LIST changes: -LISI-729 PO; +LISI5TAB20 PO
[2021-03-30] MEDS ORDERED: NS IV 1000 ML 1,000 ML IV STA (08:14)
[2021-03-30] MEDS ORDERED: LIDOCAINE 1% INJ 20 ML 20 ML VIAL INJ ONE (08:15)
[2021-03-30] MEDS ORDERED: MIDAZOLAM 2 MG/2 ML (VERSED) VIAL IVP ONE (08:15)
[2021-03-30] MEDS ORDERED: fentaNYL INJ 100 MCG/2 ML AMP IVP ONE (08:15)
[2021-03-30 08:24] LABS: BASOPHILS # (AUTO) 0.1 10^3/uL (0.0-0.1); BASOPHILS % (AUTO) 1 % (0-10); EOSINOPHILS # (AUTO) 0.2 10^3/uL (0.0-0.3); EOSINOPHILS % (AUTO) 2 % (0-10); HEMATOCRIT 34 % (40-54); HEMOGLOBIN 11.1 g/dL (13.3-17.7); LYMPHOCYTES # (AUTO) 1.5 10^3/uL (1.0-4.0); LYMPHOCYTES % (AUTO) 20 % (12-44); MEAN CORPUSCULAR HEMOGLOBIN 32 pg (25-34); MEAN CORPUSCULAR HGB CONC 33 g/dL (32-36); MEAN CORPUSCULAR VOLUME 98 fL (80-99); MONOCYTES # (AUTO) 0.8 10^3/uL (0.0-1.0); MONOCYTES % (AUTO) 10 % (0-12); NEUTROPHILS # (AUTO) 4.8 10^3/uL (1.8-7.8); NEUTROPHILS % (AUTO) 65 % (42-75); PLATELET COUNT 259 10^3/uL (130-400); WHITE BLOOD COUNT 7.5 10^3/uL (4.3-11.0)
[2021-03-30 08:32] LABS: INR 0.9 (0.8-1.4)
[2021-03-30] MEDS ORDERED: ACET325T49 PO (08:43)
[2021-03-30] MEDS ORDERED: LANS15CA5 PO (08:43)
[2021-03-30] MEDS ORDERED: ATEN25TA PO (08:43)
[2021-03-30] MEDS ORDERED: ASPI-479 PO (08:43)
[2021-03-30] MEDS ORDERED: MIDAZOLAM 2 MG/2 ML (VERSED) VIAL ONE (09:00)
[2021-03-30] MEDS ORDERED: NS IV 1000 ML 1,000 ML ONE (09:00)
[2021-03-30] MEDS ORDERED: LIDOCAINE 1% INJ 20 ML 20 ML VIAL ONE (09:00)
[2021-03-30] MEDS ORDERED: fentaNYL INJ 100 MCG/2 ML AMP ONE (09:00)
[2021-03-30] MEDS ORDERED: TRAM50TA3 PO (09:03)
[2021-03-30] MEDS ORDERED: NITR0.4T39 SL (09:03)
[2021-03-30] MEDS ORDERED: GABA100C PO (09:03)
[2021-03-30] MEDS ORDERED: LANS30CA PO (09:03)
[2021-03-30] MEDS ORDERED: RT-ALBUINH IH (09:03)
[2021-03-30] MEDS ORDERED: ALLO100T PO (09:03)
[2021-03-30] MEDS ORDERED: SEVE800T7 PO ×2 (09:03)
[2021-03-30] MEDS ORDERED: ROPI3TAB4 PO (09:03)
--- NOTE | 2021-03-30 09:53 | Pre-Op Note & Conscious Sedat ---
Pre-Operative Progress Note H&P Reviewed The H&P was reviewed, patient examined and no changes noted. Date H&P Reviewed: Mar 30, 2021 Time H&P Reviewed: 08:00 Pre-Op Diagnosis: lung mas Conscious Sedation Pre-Proced Time 08:00 ASA Score 2 For ASA 3 and 4: Consider anesthesia and medical clearance. Also, for patients with a history of failed moderate sedation consider anesthesia. Airway Lungs Heart ASA score ASA 1: a normal healthy patient ASA 2: a patient with a mild systemic disease (mid diabetes, controlled hypertension, obesity ASA 3: a patient with a severe systemic disease that limits activity (angina, COPD, prior Myocardial infarction) ASA 4: a patient with an incapacitating disease that is a constant threat to life (CHF, renal failure) ASA 5: a moribund patient not expected to survive 24 hrs. (ruptured aneurysm) ASA 6: a declared brain- patient whose organs are being harvested. For emergent operations, add the letter E after the classification Mallampati Classification Grade 2 Sedation Plan Analgesia, Amnesia, Plan communicated to team members, Discussed options with patient/fam, Discussed risks with patient/fam The patient is an appropriate candidate to undergo the planned procedure, sedation, and anesthesia. The patient immediately re-assessed prior to indication. MC NGO MD Mar 30, 2021 09:53
--- NOTE | 2021-03-30 09:57 | Diagnostic Imaging Report ---
INDICATION: Right lung mass. Patient presents for CT-guided biopsy. The patient was brought to the CT suite and placed on the table in the left side down decubitus position. Axial imaging through the chest was performed to evaluate appropriate entry site. Anterolateral right chest was prepped and draped usual sterile fashion. Small amount of 1% lidocaine was utilized for local anesthesia. The procedure was performed utilizing conscious sedation with radiology nursing and constant patient monitoring. Patient was given a total of 50 mcg of fentanyl intravenously and 1 mg of Versed intravenously. Total procedure time was 12 minutes. 18-gauge coaxial Temno needle was advanced and placed with its tip along the margin of the spiculated density in the right upper lobe. 4 core biopsies were obtained. Needle was removed while placing a BioSentry sealant device. Followup imaging does show a small amount of perilesional hemorrhage. There is also very small right-sided pneumothorax. This will be followed with repeat chest x-ray in 2 hours. Patient tolerated the procedure well and left the department in stable condition. IMPRESSION: Successful CT-guided core biopsy of the spiculated lesion in the right upper lobe, as described. Pathology results are currently pending. TECHNIQUE: All CT scans use one or more of the following dose optimizing techniques: automated exposure control, MA and/or KvP adjustment based on patient size and exam type or iterative reconstruction. Dictated by: Dictated on workstation # [id number]
--- NOTE | 2021-03-30 12:14 | Diagnostic Imaging Report ---
INDICATION: Status post right lung biopsy. TIME OF EXAM: 11:39 AM Correlation is made with radiograph from 05/04/2020. There is a tiny right apical pneumothorax, status post right upper lobe lung biopsy. Some minimal infiltrate right midlung consistent with some minimal hemorrhage. Left lung is clear. There is no effusion. IMPRESSION: Tiny right apical pneumothorax, status post right lung biopsy. Dictated by: Dictated on workstation # [id number]
== END 2021-03-30 12:48 | disposition home or self-care (01) ==
LOC: SDC 07:18
PROVIDERS: ATTEND Internal Medicine
DX: R91.8 Other nonspecific abnormal finding of lung field (principal); I12.9 Hypertensive chronic kidney disease with stage 1 through stage 4 chronic kidney disease, or unspecified chronic kidney disease; N18.6 End stage renal disease; Z98.890 Other specified postprocedural states
CPT/HCPCS: 32408; 71045; 77012; 85025; 85610; 85730; 88305; 88344; 99156; C2613; 36415

== ENCOUNTER → 2021-04-07 | Outpatient (CLI) | payer MEDICARE ==
[~2021-04-07] MED LIST changes: +ACET325T49 PO; +ALLO100T PO; +ASPI-479 PO; +GABA100C PO; +LANS15CA5 PO; +LANS30CA PO; +NITR0.4T39 SL; +ROPI3TAB4 PO; +RT-ALBUINH IH; +SEVE800T7 PO; +TRAM50TA3 PO
--- NOTE | 2021-04-07 15:36 | Diagnostic Imaging Report ---
EXAMINATION: PET/CT INDICATION: Squamous cell carcinoma. TECHNIQUE: PET/CT imaging was obtained from the base of the skull through the pelvis after the administration of 13.17 mCi of F-[address] imaging was utilized for localization and attenuation correction purposes. The low energy CT utilized for attenuation correction is not considered to be of high enough spatial resolution to allow in and of itself a separate anatomical analysis. Height: 5 feet, 6 inches. Weight: 162 pounds. Blood glucose: 108. COMPARISON: There are no prior PET/CT examinations available for comparison. The CT chest exam performed on 02/19/2021 noted a spiculated density in the right upper lung measuring 18 x 20 mm. 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 On this study, the lesion in the right upper lung seen previously is again evident. This finding has not changed significantly although it now measures 15 x 23 mm. The maximum SUV in this area is 5.84. There is another area of slightly increased metabolic activity along the posterior aspect of the right upper lobe at the same level. This has a maximum SUV be of 2.9. There is no mass identified in this area on the CT images although there does appear to be a tiny area of cavitation in this region. Even so, this finding is suspicious for malignancy. There is no other hypermetabolic activity involving the thorax to suggest neoplastic disease. There is no hypermetabolic activity in the neck, abdomen or pelvis to indicate neoplastic disease either. The CT images failed to show any sign of an acute abnormality. There is cholelithiasis but there is no sign of acute cholecystitis. There is also diverticulosis of the sigmoid colon without evidence for acute diverticulitis. The prostate gland is enlarged. There is a carotid stent in place on the right. IMPRESSION: 1. The small neoplastic mass in the right upper lung seen previously is again evident. This has a maximum SUV of 5.4 and would be consistent with the patient's known diagnosis of malignancy. There is a second less intense area of hyper metabolic activity along the posterior aspect of the right upper lung. There is no corresponding mass evident on the CT images but this finding is still suspicious for malignancy.. 2. There is no other hypermetabolic activity to suggest the presence of malignancy. 3. There is no acute abnormality identified. Cholelithiasis and diverticulosis of the sigmoid colon are noted as is prostatomegaly. Dictated by: Dictated on workstation # [id number]
== END ==
LOC: RAD 10:30
PROVIDERS: ATTEND Internal Medicine
DX: C34.90 Malignant neoplasm of unspecified part of unspecified bronchus or lung (principal); K80.20 Calculus of gallbladder without cholecystitis without obstruction; K57.30 Diverticulosis of large intestine without perforation or abscess without bleeding
CPT/HCPCS: 78815; A9552

== ENCOUNTER 2021-05-05 19:38 | Emergency (ER) | payer MEDICARE ==
[~2021-05-05] VITALS: Ht 167.7 cm; Wt 74.8 kg
--- NOTE | 2021-05-05 20:31 | ED Lower Extremity ---
General Chief Complaint: Lower Extremity Stated Complaint: L KNEE PAIN Nursing Triage Note: PT TO ED VIA [facility]. PT C/O LEFT KNEE PAIN SX APPROX 1400 TODAY WHEN HE FELL FORWARD LANDING ON HIS LEFT KNEE. PT DENIES HITTING HEAD, A&OX4. Source: patient History of Present Illness Date Seen by Provider: May 05, 2021 Time Seen by Provider: 20:14 Initial Comments PT ARRIVES VIA [facility] FROM HOME STATES AROUND 1400, HE FELL FORWARD, LANDING ON LEFT KNEE DID NOT HIT HEAD OR HAVE LOSS OF CONSCIOUSNESS DENIES ANY OTHER INJURIES FROM THE INCIDENT STATES HE DID FALL AND INJURE THIS KNEE IN 2017, BUT DOES NOT KNOW IF IT WAS BROKEN OR NOT HAS NOT TAKEN ANYTHING FOR PAIN PT IS ON DIALYSIS PT ALSO RECENTLY DX WITH SQUAMOUS CELL LUNG CANCER/RIGHT LUNG--NO TREATMENT YET. PCP: DR. IRBY Allergies and Home Medications Allergies Coded Allergies: Penicillins (Unverified Allergy, Unknown, 09/06/11) Oewkdxr-SWK-SpQ Reductase Inhibitor (Verified Allergy, Unknown, 03/30/21) hydrocodone (Verified Allergy, Unknown, 03/30/21) meperidine (Unverified Allergy, Unknown, 05/04/10) ramipril (Verified Allergy, Unknown, 03/30/21) naproxen (Verified Adverse Reaction, Unknown, 03/30/21) Patient Home Medication List Home Medication List Reviewed: Yes Acetaminophen (Acetaminophen) 325 Mg Tablet, 2 TAB PO Q6H PRN for PAIN-MILD (1- 4), (Reported) Entered as Reported by: COLEMAN [place] on 03/30/21 08 Albuterol Sulfate (Proair Hfa) 1 Puff Puff, 2 PUFF IH Q4H PRN for SHORTNESS OF BREATH, (Reported) Entered as Reported by: COLEMAN [place] on 03/30/21 09 Allopurinol (Allopurinol) 100 Mg Tablet, 100 MG PO DAILY, (Reported) Entered as Reported by: COLEMAN [place] on 03/30/21902 Aspirin (Adult Low Dose Aspirin EC) 81 Mg Tablet.dr, 81 MG PO DAILY, (Reported) Entered as Reported by: COLEMAN [place] on 03/30/21 08 Atenolol (Atenolol) 25 Mg Tablet, 12.5 MG PO DAILY PRN for BLOOD PRESSURE, (Reported) Entered as Reported by: COLEMAN [place] on 03/30/21842 Gabapentin (Neurontin) 100 Mg Capsule, 100 MG PO TID, (Reported) Entered as Reported by: COLEMAN [place] on 03/30/21902 Lansoprazole (Lansoprazole) 30 Mg Capsule.dr, 30 MG PO DAILY, (Reported) Entered as Reported by: COLEMAN [place] on 03/30/21902 Nitroglycerin (Nitroglycerin) 0.4 Mg Tab.subl, 0.4 MG SL UD PRN for CHEST PAIN, (Reported) Entered as Reported by: COLEMAN [place] on 03/30/21902 Ropinirole HCl (Ropinirole HCl) 3 Mg Tablet, 3 MG PO BID, (Reported) Entered as Reported by: COLEMAN [place] on 03/30/21902 Sevelamer Carbonate (Renvela) 800 Mg Tablet, 3 TAB PO TID, (Reported) Entered as Reported by: COLEMAN [place] on 03/30/21902 Sevelamer Carbonate (Renvela) 800 Mg Tablet, 1 TAB PO HS, (Reported) Entered as Reported by: COLEMAN [place] on 03/30/21902 Tramadol HCl (Tramadol HCl) 50 Mg Tablet, 50 MG PO Q8H PRN for PAIN-MODERATE (5- 7), (Reported) Entered as Reported by: COLEMAN [place] on 03/30/21902 Review of Systems Constitutional: no symptoms reported Musculoskeletal: see HPI Skin: no symptoms reported Psychiatric/Neurological: No Symptoms Reported Past Mqfencx-Xzbrvo-Quhwpu Hx Patient Social History Tobacco Use?: No Smoking Status: Former Smoker Use of E-Cig and/or Vaping dev: No Substance use?: No Alcohol Use?: No Immunizations Up To Date Tetanus Booster (TDap): Unknown First/Initial COVID19 Vaccinat: 08/10/20 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 ONLY 1 SHOT D/T SICKNESS POST VACCINE Seasonal Allergies Seasonal Allergies: No Past Medical History Surgeries: Yes (BONE SPURS ON BILAT FEET, CYST REMOVED FROM LOWER JAW, ARM A CHILD) Orthopedic Respiratory: Yes COPD Cardiac: Yes Coronary Artery Disease, High Cholesterol, Hypertension, Peripheral Vascular Neurological: Yes Neuropathy Reproductive Disorders: No Genitourinary: Yes Renal Failure, Dialysis Gastrointestinal: Yes Gastroesophageal Reflux Musculoskeletal: Yes Arthritis, Gout Endocrine: No HEENT: No Cancer: No Psychosocial: No Integumentary: No Blood Disorders: No Physical Exam Vital Signs Vital Signs - First Documented 05/05/21 20:13 Temp 36.6 Pulse 83 Resp 20 B/P (MAP) 158/96 (116) Pulse Ox 95 O2 Delivery Room Air Capillary Refill : Less Than 3 Seconds Height, Weight, BMI Height: 5'6" Weight: 148lbs. 11.0oz. 67.655992vp; 26.00 BMI Method:Stated General Appearance: WD/WN, no apparent distress Hips: bilateral hip non-tender Legs: bilateral leg non-tender Knees: right knee non-tender; left knee bone tenderness, left knee pain, left knee soft tissue tenderness, left knee swelling, left knee other (NO OPEN WOUNDS/ABRASIONS. NO BRUISING. 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, no motor/sensory deficits, alert, normal mood/affect, oriented x 3 Skin: normal color, warm/dry; No ecchymosis Procedures/Interventions Splinting and Joint Reduction : Scottie wrap: Yes Immobilizers: 19 inch Knee Progress/Results/Core Measures Results/Orders My Orders Orders - CHARLES FUENTES DO Femur, Left, 2 Views (05/05/21 20:16) Tibia/Fibula, Left, 2 Views (05/05/21 20:16) Knee, Left, 3 Views (05/05/21 20:16) Scottie Bandage (05/05/21 20:57) Knee Immobilizer (05/05/21 20:57) Vital Signs/I&O 05/05/21 20:13 Temp 36.6 Pulse 83 Resp 20 B/P (MAP) 158/96 (116) Pulse Ox 95 O2 Delivery Room Air Blood Pressure Mean: 116 Progress Progress Note : Progress Note PT STATES HE HAS BOTH A WHEELCHAIR AND A WALKER AT HOME--ADVISED HIM TO USE EITHER ONE OF THEM AT ALL TIMES Diagnostic Imaging Comments XRAYS--PER RADIOLOGIST REPORTS AT 2054 LEFT FEMUR-- FINDINGS: There are vascular calcifications. There is no identified acute fracture. The left hip is not dislocated. There is no pronounced joint space loss of the left hip. There is tricompartmental osteoarthritis of the left knee without left knee joint effusion. There is a small radiopaque foreign body within the medial soft tissues at the level of the distal femoral metadiaphysis measuring 2 mm in size. This is of unclear exact acuity. Recommend correlation. IMPRESSION: 1. No identified acute bony abnormality of the left femur. 2. 2 mm radiopaque foreign body within the medial soft tissues at the level of the distal femoral metadiaphysis of unclear exact age. Recommend correlation. LEFT KNEE-- FINDINGS: There is moderate to severe medial and severe patellofemoral compartment joint space loss with small osteophytes. There is no knee joint effusion. There are vascular calcifications. There is a 2 mm radiopaque foreign body within the medial soft tissues at the level of the distal femoral metadiaphysis. There is no identified acute fracture. IMPRESSION: 1. No identified acute bony abnormality at the level of the left knee. 2. Advanced predominantly medial and patellofemoral compartment osteoarthritis without knee joint effusion. 3. 2 mm radiopaque foreign body within the medial soft tissues at the level of the distal femoral metadiaphysis of unclear exact age. Recommend correlation. LEFT TIB/FIB-- FINDINGS: There is chondrocalcinosis. There is predominantly medial and patellofemoral compartment osteoarthritis of the left knee without left knee joint effusion. There are vascular related calcifications. There is a 2 mm radiopaque foreign body within the medial soft tissues at the level of the distal femoral metadiaphysis of unclear exact age. Recommend correlation. There is no identified acute fracture. IMPRESSION: 1. No identified acute bony abnormality of the left tibia or fibula. Reviewed: Reviewed by Me Departure Impression Primary Impression: Fall from standing Additional Impression: Contusion of left knee Disposition: HOME, SELF-CARE Condition: Stable Departure-Patient Inst. Decision time for Depature: 20:55 Referrals: LILIANA IRBY MD (PCP/Family) Primary Care Physician Patient Instructions: Contusion (DC), Preventing Falls in the Older Adult Add. Discharge Instructions: SCOTTIE WRAP AND KNEE IMMOBILIZER AT ALL TIMES USE WALKER OR WHEELCHAIR AT ALL TIMES ICE TO AREA AT 20 MINUTE INTERVALS TYLENOL NEEDED FOR PAIN FOLLOW UP WITH DR. LEON THIS WEEK FOR FURTHER CARE All discharge instructions reviewed with patient and/or family. Voiced understanding. CHARLES FUENTES DO May 05, 2021 20:31
--- NOTE | 2021-05-05 20:49 | Diagnostic Imaging Report ---
EXAMINATION: Left femur radiographs, 2 views. 4 images. COMPARISON: None. HISTORY: 89-year-old male, left leg pain. Fall. FINDINGS: There are vascular calcifications. There is no identified acute fracture. The left hip is not dislocated. There is no pronounced joint space loss of the left hip. There is tricompartmental osteoarthritis of the left knee without left knee joint effusion. There is a small radiopaque foreign body within the medial soft tissues at the level of the distal femoral metadiaphysis measuring 2 mm in size. This is of unclear exact acuity. Recommend correlation. IMPRESSION: 1. No identified acute bony abnormality of the left femur. 2. 2 mm radiopaque foreign body within the medial soft tissues at the level of the distal femoral metadiaphysis of unclear exact age. Recommend correlation. Dictated by: Dictated on workstation # [id number]
--- NOTE | 2021-05-05 20:50 | Diagnostic Imaging Report ---
EXAMINATION: Left tibia and fibula radiographs, 2 views, 4 images. COMPARISON: None. HISTORY: 89-year-old male, fall. Left tibia and fibula pain. FINDINGS: There is chondrocalcinosis. There is predominantly medial and patellofemoral compartment osteoarthritis of the left knee without left knee joint effusion. There are vascular related calcifications. There is a 2 mm radiopaque foreign body within the medial soft tissues at the level of the distal femoral metadiaphysis of unclear exact age. Recommend correlation. There is no identified acute fracture. IMPRESSION: 1. No identified acute bony abnormality of the left tibia or fibula. Dictated by: Dictated on workstation # [id number]
--- NOTE | 2021-05-05 20:51 | Diagnostic Imaging Report ---
EXAMINATION: Left knee radiographs, 3 views. COMPARISON: None. HISTORY: 89-year-old male, fall. Left knee pain. FINDINGS: There is moderate to severe medial and severe patellofemoral compartment joint space loss with small osteophytes. There is no knee joint effusion. There are vascular calcifications. There is a 2 mm radiopaque foreign body within the medial soft tissues at the level of the distal femoral metadiaphysis. There is no identified acute fracture. IMPRESSION: 1. No identified acute bony abnormality at the level of the left knee. 2. Advanced predominantly medial and patellofemoral compartment osteoarthritis without knee joint effusion. 3. 2 mm radiopaque foreign body within the medial soft tissues at the level of the distal femoral metadiaphysis of unclear exact age. Recommend correlation. Dictated by: Dictated on workstation # [id number]
[2021-05-05 21:25] VITALS: BP 167/73
== END 2021-05-05 21:26 | disposition home or self-care (01) ==
LOC: EDUNIT# 19:38 → ER 19:40
DX: S80.02XA Contusion of left knee, initial encounter (principal); I12.9 Hypertensive chronic kidney disease with stage 1 through stage 4 chronic kidney disease, or unspecified chronic kidney disease; N18.9 Chronic kidney disease, unspecified; C34.91 Malignant neoplasm of unspecified part of right bronchus or lung; I25.10 Atherosclerotic heart disease of native coronary artery without angina pectoris; K21.9 Gastro-esophageal reflux disease without esophagitis; M10.9 Gout, unspecified; J44.9 Chronic obstructive pulmonary disease, unspecified; Z99.2 Dependence on renal dialysis; Z87.891 Personal history of nicotine dependence; Z88.5 Allergy status to narcotic agent; Z88.8 Allergy status to other drugs, medicaments and biological substances; Z79.82 Long term (current) use of aspirin; Z79.899 Other long term (current) drug therapy; W18.30XA Fall on same level, unspecified, initial encounter
CPT/HCPCS: 73552; 73562; 73590; 99282; L1830

== ENCOUNTER 2021-05-06 09:11 | Outpatient (RCR) | payer MEDICARE | END 2021-05-08 | LOC: ONC 09:11 | PROVIDERS: ATTEND Internal Medicine Hematology & Oncology | DX: C34.11 Malignant neoplasm of upper lobe, right bronchus or lung (principal) | CPT/HCPCS: 77293; 77300; 77301; 77334; 77338; 77373; 77470; 99204; 99214 ==

== ENCOUNTER 2021-05-14 11:22 | Outpatient (RCR) | payer MEDICARE | END 2021-06-08 | disposition home or self-care (01) | LOC: ONC 11:22 | PROVIDERS: ATTEND Internal Medicine Hematology & Oncology | DX: Z51.0 Encounter for antineoplastic radiation therapy (principal); C34.11 Malignant neoplasm of upper lobe, right bronchus or lung | CPT/HCPCS: 77373; G0463; 77336 ==

== ENCOUNTER 2021-07-09 10:04 | Outpatient (RCR) | payer MEDICARE | END 2021-08-06 | disposition home or self-care (01) | LOC: ONC 10:04 | PROVIDERS: ATTEND Internal Medicine Hematology & Oncology | DX: Z51.0 Encounter for antineoplastic radiation therapy (principal); C34.11 Malignant neoplasm of upper lobe, right bronchus or lung | CPT/HCPCS: 99213 ==

== ENCOUNTER 2021-07-09 19:38 | Emergency (ER) | payer MEDICARE ==
--- NOTE | 2021-07-09 20:46 | ED Integumentary General ---
General Chief Complaint: Lower Extremity Stated Complaint: R FOOT TOE INJURY Nursing Triage Note: PT TO ER BY WC WITH WITH C/O BLEEDING 4TH TOE AFTER CUTTING IT WHILE TRIMMING TOE NAILS. PT SAID HE HAS NEUROPATHY AND DOESNT HAVE MUCH FEELING IN HIS FEET Source: patient, family () Exam Limitations: no limitations History of Present Illness Date Seen by Provider: Jul 09, 2021 Time Seen by Provider: 20:32 Initial Comments Patient is an 89-year-old male who presents to the emergency room with a chief complaint of injury to the right fourth toe. He was clipping his toenails when he caught the skin at the very end of his toe. states that they could not get the bleeding to stop so came to the emergency room for further evaluation and management. He is not on blood thinners other than a baby aspirin. No other complaints of recent illness or injury. Timing/Duration: just prior to arrival Severity: mild Possible Cause: other (Injury) Associated Symptoms: denies symptoms Allergies and Home Medications Allergies Coded Allergies: Penicillins (Unverified Allergy, Unknown, 09/06/11) Nwjalpl-CFE-AfQ Reductase Inhibitor (Verified Allergy, Unknown, 03/30/21) hydrocodone (Verified Allergy, Unknown, 03/30/21) meperidine (Unverified Allergy, Unknown, 05/04/10) ramipril (Verified Allergy, Unknown, 03/30/21) naproxen (Verified Adverse Reaction, Unknown, 03/30/21) Patient Home Medication List Home Medication List Reviewed: Yes Acetaminophen (Acetaminophen) 325 Mg Tablet, 2 TAB PO Q6H PRN for PAIN-MILD (1- 4), (Reported) Entered as Reported by: COLEMAN [place] on 03/30/21842 Albuterol Sulfate (Proair Hfa) 1 Puff Puff, 2 PUFF IH Q4H PRN for SHORTNESS OF BREATH, (Reported) Entered as Reported by: COLEMAN [place] on 03/30/21902 Allopurinol (Allopurinol) 100 Mg Tablet, 100 MG PO DAILY, (Reported) Entered as Reported by: COLEMAN [place] on 03/30/21902 Aspirin (Adult Low Dose Aspirin EC) 81 Mg Tablet.dr, 81 MG PO DAILY, (Reported) Entered as Reported by: COLEMAN [place] on 03/30/21 08 Atenolol (Atenolol) 25 Mg Tablet, 12.5 MG PO DAILY PRN for BLOOD PRESSURE, (Reported) Entered as Reported by: COLEMAN [place] on 03/30/21842 Gabapentin (Neurontin) 100 Mg Capsule, 100 MG PO TID, (Reported) Entered as Reported by: COLEMAN [place] on 03/30/21902 Lansoprazole (Lansoprazole) 30 Mg Capsule.dr, 30 MG PO DAILY, (Reported) Entered as Reported by: COLEMAN [place] on 03/30/21902 Nitroglycerin (Nitroglycerin) 0.4 Mg Tab.subl, 0.4 MG SL UD PRN for CHEST PAIN, (Reported) Entered as Reported by: COLEMAN [place] on 03/30/21902 Ropinirole HCl (Ropinirole HCl) 3 Mg Tablet, 3 MG PO BID, (Reported) Entered as Reported by: COLEMAN [place] on 03/30/21902 Sevelamer Carbonate (Renvela) 800 Mg Tablet, 3 TAB PO TID, (Reported) Entered as Reported by: COLEMAN [place] on 03/30/21902 Sevelamer Carbonate (Renvela) 800 Mg Tablet, 1 TAB PO HS, (Reported) Entered as Reported by: COLEMAN [place] on 03/30/21902 Tramadol HCl (Tramadol HCl) 50 Mg Tablet, 50 MG PO Q8H PRN for PAIN-MODERATE (5- 7), (Reported) Entered as Reported by: COLEMAN [place] on 03/30/21902 Review of Systems Review of Systems Constitutional: see HPI Respiratory: no symptoms reported Cardiovascular: no symptoms reported Skin: other (Laceration) All Other Systems Reviewed Negative Unless Noted: Yes Past Sphdbzz-Owgqbh-Dgrvcu Hx Patient Social History Tobacco Use?: No Substance use?: No Alcohol Use?: No Pt feels they are or have been: No Immunizations Up To Date Tetanus Booster (TDap): Unknown First/Initial COVID19 Vaccinat: 08/10/20 Seasonal Allergies Seasonal Allergies: No Past Medical History Surgery/Hospitalization HX: ESRD, LUNG CANCER WITH RADIATION, HTN, Surgeries: Yes (BONE SPURS ON BILAT FEET, CYST REMOVED FROM LOWER JAW, ARM A CHILD) Orthopedic Respiratory: Yes COPD Cardiac: Yes Coronary Artery Disease, High Cholesterol, Hypertension, Peripheral Vascular Neurological: Yes Neuropathy Reproductive Disorders: No Genitourinary: Yes Renal Failure, Dialysis Gastrointestinal: Yes Gastroesophageal Reflux Musculoskeletal: Yes Arthritis, Gout Endocrine: No HEENT: No Cancer: No Psychosocial: No Integumentary: No Blood Disorders: No Physical Exam Vital Signs Vital Signs - First Documented 07/09/21 20:18 Temp 36.0 Pulse 78 Resp 17 B/P (MAP) 143/59 (87) Capillary Refill : General Appearance: WD/WN, no apparent distress Cardiovascular: regular rate, rhythm Respiratory: no respiratory distress, no accessory muscle use Extremities: normal range of motion, normal inspection Neurologic/Psychiatric: alert Skin: normal color, warm/dry, other (The very tip of the right fourth toe shows an avulsion/laceration injury about 2 mm in length. Minimal bleeding noted.) Procedures/Interventions Wound Location: Lower Extremities Other Wound Location tip of right 4th toe Wound Length (cm): 0.3 Wound's Depth, Shape: superficial, linear Wound Explored: clean Irrigated w/ Saline (ccs): 50 Betadine Prep?: No Other Closure Supply: Wound Adhesive Progress cleaned with betasept and saline vigorously. Progress/Results/Core Measures Results/Orders Vital Signs/I&O 07/09/21 20:18 Temp 36.0 Pulse 78 Resp 17 B/P (MAP) 143/59 (87) Blood Pressure Mean: 87 Progress Progress Note : Time: 20:42 Progress Note Wound on the tip of the right fourth toe cleaned with saline and Betasept solution. Rest of the foot was scrubbed clean. Skin affix was used to place a dressing over the tip of the toe. Bleeding controlled. Patient counseled on monitoring the wound. All questions were sought and answered. Departure Impression Primary Impression: Laceration of fourth toe, right Qualified Codes: S91.114A - Laceration without foreign body of right lesser toe(s) without damage to nail, initial encounter Disposition: 01 HOME, SELF-CARE Condition: Stable Departure-Patient Inst. Decision time for Depature: 20:44 Referrals: LILIANA IRBY MD (PCP/Family) Primary Care Physician Patient Instructions: Laceration Repair With Glue (DC) Add. Discharge Instructions: Wash the toe daily with soap and water, gently. Do not put any triple antibiotic ointment over the glue because it will take it off. Monitor the toe for signs of redness, swelling, "fever" or any other signs of infection. Please follow-up with your primary care doctor if you notice any signs of infection of the toe or foot. Return to the emergency department for any new, concerning or emergent complaints. GINETTE SYKES MD Jul 09, 2021 20:46
[2021-07-09 21:09] VITALS: BP 147/87
== END 2021-07-09 21:07 | disposition home or self-care (01) ==
LOC: EDUNIT# 19:38 → ER 19:40
DX: S91.114A Laceration without foreign body of right lesser toe(s) without damage to nail, initial encounter (principal); W23.1XXA Caught, crushed, jammed, or pinched between stationary objects, initial encounter

== ENCOUNTER → 2021-08-10 | Outpatient (CLI) | payer MEDICARE ==
--- NOTE | 2021-08-10 16:41 | Diagnostic Imaging Report ---
PROCEDURE: CT chest without contrast. TECHNIQUE: Multiple contiguous axial images were obtained through the chest without the use of intravenous contrast. Auto Exposure Controls were utilized during the CT exam to meet ALARA standards for radiation dose reduction. DATE: August 10, 2021. COMPARISON: CT chest February 19, 2021. INDICATION: 89-year-old male, history of lung cancer. Right lateral chest pain. PROCEDURE: Axial noncontrasted CT images of the chest. Noncontrasted limits the evaluation of the mediastinum and vascular structures. FINDINGS: There is a stable 5 mm right lower lobe pulmonary nodule on axial image 110. There are findings of emphysema. There are scattered tiny subcentimeter granulomas. There is some focal ill-defined airspace consolidation in the right upper lobe with a nodular appearance on axial image 54. This currently measures up to approximately 1.5 cm in size and is essentially unchanged, smaller since February 19, 2021. There are peripheral reticular opacities in the right mid and lower lung zone compatible with chronic lung changes. There is no pneumothorax. There is no pleural effusion. There is no new or enlarging pulmonary nodule. There is no additional areas of focal airspace consolidation. There are coronary artery calcifications and additional areas of atherosclerotic disease. The heart is not enlarged. There is no pericardial effusion. There is no identified abnormally enlarged mediastinal or axillary lymph node meeting CT size criteria for adenopathy. There is cholelithiasis without evidence of acute cholecystitis. As a low-attenuation right renal lesion on axial image 24 measuring 1.9 cm in size with internal attenuation consistent with a benign cyst. There is moderate right renal atrophy. There is moderate left renal atrophy. There is no identified acute bony abnormality. IMPRESSION: 1. Essentially unchanged size of the right upper lobe pulmonary nodule. 2. Stable 5 mm or lobe pulmonary nodule. 3. No identified new or enlarging pulmonary nodule. 4. No identified acute cardiopulmonary abnormality. 5. Findings of emphysema. Dictated on workstation # [id number]
== END ==
LOC: RAD 15:15
PROVIDERS: ATTEND Radiology Radiation Oncology
DX: J43.9 Emphysema, unspecified (principal); R91.8 Other nonspecific abnormal finding of lung field; Z85.3 Personal history of malignant neoplasm of breast
CPT/HCPCS: 71250

== ENCOUNTER 2021-08-13 10:27 | Outpatient (RCR) | payer MEDICARE | END 2021-09-05 | disposition home or self-care (01) | LOC: ONC 10:27 | PROVIDERS: ATTEND Radiology Radiation Oncology | DX: C34.11 Malignant neoplasm of upper lobe, right bronchus or lung (principal) | CPT/HCPCS: 99213 ==

== ENCOUNTER 2021-09-19 09:52 | Emergency (ER) | payer MEDICARE ==
[~2021-09-19] VITALS: Ht 167 cm; Wt 74.8 kg
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
[2021-09-19 11:35] VITALS: BP 152/70
== END 2021-09-19 11:35 | disposition home or self-care (01) ==
LOC: EDUNIT# 09:52 → ER 09:53
DX: S02.2XXA Fracture of nasal bones, initial encounter for closed fracture (principal); S00.81XA Abrasion of other part of head, initial encounter; R04.0 Epistaxis; V47.5XXA Car driver injured in collision with fixed or stationary object in traffic accident, initial encounter; Y92.410 Unspecified street and highway as the place of occurrence of the external cause
CPT/HCPCS: 70450; 70486

== ENCOUNTER → 2022-02-09 | Outpatient (CLI) | payer MEDICARE ==
--- NOTE | 2022-02-09 14:37 | Diagnostic Imaging Report ---
INDICATION: Lung cancer, followup. TECHNIQUE: Multiple contiguous axial images were obtained through the chest without the use of intravenous contrast. Auto Exposure Controls were utilized during the CT exam to meet ALARA standards for radiation dose reduction. COMPARISON: 08/10/2021. FINDINGS: There are no enlarged axillary nodes. There is adenopathy in the subcarinal region measuring 2.5 x 3.7 cm which appears to be new or increased compared to the prior study. The visualized portions of the upper abdomen demonstrate incidental gallstones. There is severe diffuse emphysematous change. There is dense consolidation in the right upper lobe posteriorly with air bronchograms, suspect pneumonia. There is indeterminate opacity in the superior segment of the right lower lobe which may represent pneumonia or mass. This area is new compared to the prior study and measures about 4.9 x 2.3 cm. There is bibasilar scarring. The previous right upper lobe nodular density is obscured by the above-mentioned infiltrate. The tiny right lower lobe nodule inferiorly is unchanged. There is no new focal lesion in the left lung. IMPRESSION: Emphysematous change. Worsening appearance compared to the prior study. There is a density in the right upper lobe which contains air bronchograms and may represent pneumonia, less likely mass. There is an indeterminate new opacity in the superior segment of the right lower lobe which may represent mass or infiltrate. There is new adenopathy in the subcarinal region. A PET CT or short-term followup CT chest after treatment is recommended. Dictated by: Dictated on workstation # [id number]
== END ==
LOC: RAD 11:50
PROVIDERS: ATTEND Radiology Radiation Oncology
DX: J43.9 Emphysema, unspecified (principal); C34.11 Malignant neoplasm of upper lobe, right bronchus or lung
CPT/HCPCS: 71250

== ENCOUNTER 2022-02-11 11:34 | Outpatient (RCR) | payer MEDICARE ==
[~2022-02-11 11:34] MED LIST changes: +ALBU8.5H6 IH; -RT-ALBUINH IH
== END 2022-03-08 | disposition home or self-care (01) ==
LOC: ONC 11:34
PROVIDERS: ATTEND Radiology Radiation Oncology
DX: C34.11 Malignant neoplasm of upper lobe, right bronchus or lung (principal)
CPT/HCPCS: 99213

== ENCOUNTER → 2022-03-31 | Outpatient (CLI) | payer MEDICARE ==
[2022-03-31 14:49] LABS: BASOPHILS # (AUTO) 0.1 10^3/uL (0.0-0.1); BASOPHILS % (AUTO) 1 % (0-10); EOSINOPHILS # (AUTO) 0.1 10^3/uL (0.0-0.3); EOSINOPHILS % (AUTO) 2 % (0-10); HEMATOCRIT 42 % (40-54); HEMOGLOBIN 13.8 g/dL (13.3-17.7); LYMPHOCYTES # (AUTO) 1.4 10^3/uL (1.0-4.0); LYMPHOCYTES % (AUTO) 19 % (12-44); MEAN CORPUSCULAR HEMOGLOBIN 30 pg (25-34); MEAN CORPUSCULAR HGB CONC 33 g/dL (32-36); MEAN CORPUSCULAR VOLUME 90 fL (80-99); MEAN PLATELET VOLUME 10.6 fL (9.0-12.2); MONOCYTES # (AUTO) 0.7 10^3/uL (0.0-1.0); MONOCYTES % (AUTO) 9 % (0-12); NEUTROPHILS % (AUTO) 68 % (42-75); PLATELET COUNT 301 10^3/uL (130-400); WHITE BLOOD COUNT 7.4 10^3/uL (4.3-11.0)
[2022-03-31 14:58] LABS: ALBUMIN 4.1 GM/DL (3.2-4.5)
[2022-03-31 14:59] LABS: CALCIUM 10.1 MG/DL (8.5-10.1)
[2022-03-31 15:00] LABS: TOTAL PROTEIN 8.9 GM/DL (6.4-8.2)
[2022-03-31 15:02] LABS: BILIRUBIN,TOTAL 0.7 MG/DL (0.1-1.0)
[2022-03-31 15:04] LABS: CREATININE SERUM 1.91 MG/DL (0.60-1.30)
--- NOTE | 2022-03-31 15:19 | Diagnostic Imaging Report ---
Indication: Cough, lung cancer. Compared with radiograph 02/16/2021 as well as correlated with more recent chest CT 02/09/2022. Right perihilar and peripheral lung opacity is significantly progressed from the previous radiograph but when correlated with the more recent CT chest, is not clearly changed given the differing modality. Underlying COPD and interstitial disease diffusely stable, no obvious pleural fluid or pneumothorax. Impression: Abnormal right midlung density unchanged from the recent CT but significantly progressed from the older chest x-ray. 5 lobe interstitial opacities more diffusely are present which may reflect an element of edema or interstitial pneumonia. No pleural fluid, no pneumothorax. Dictated by: Dictated on workstation # [id number]
== END ==
LOC: RAD 14:29
PROVIDERS: ATTEND Internal Medicine
DX: C34.90 Malignant neoplasm of unspecified part of unspecified bronchus or lung (principal); R91.8 Other nonspecific abnormal finding of lung field
CPT/HCPCS: 36415; 71046; 80053; 85025

== ENCOUNTER 2022-04-06 08:51 | Emergency (ER) | payer MEDICARE ==
[~2022-04-06] VITALS: Ht 170 cm; Wt 77.0 kg
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
[2022-04-06 09:28] LABS: BASOPHILS # (AUTO) 0.1 10^3/uL (0.0-0.1); BASOPHILS % (AUTO) 1 % (0-10); EOSINOPHILS # (AUTO) 0.1 10^3/uL (0.0-0.3); EOSINOPHILS % (AUTO) 1 % (0-10); HEMATOCRIT 34 % (40-54); HEMOGLOBIN 11.3 g/dL (13.3-17.7); LYMPHOCYTES # (AUTO) 1.4 10^3/uL (1.0-4.0); LYMPHOCYTES % (AUTO) 15 % (12-44); MEAN CORPUSCULAR HEMOGLOBIN 29 pg (25-34); MEAN CORPUSCULAR HGB CONC 33 g/dL (32-36); MEAN CORPUSCULAR VOLUME 89 fL (80-99); MEAN PLATELET VOLUME 10.7 fL (9.0-12.2); MONOCYTES # (AUTO) 1.1 10^3/uL (0.0-1.0); MONOCYTES % (AUTO) 11 % (0-12); NEUTROPHILS # (AUTO) 6.9 10^3/uL (1.8-7.8); NEUTROPHILS % (AUTO) 72 % (42-75); PLATELET COUNT 256 10^3/uL (130-400); WHITE BLOOD COUNT 9.5 10^3/uL (4.3-11.0)
[2022-04-06 09:46] LABS: CALCIUM 8.5 MG/DL (8.5-10.1); CREATININE SERUM 5.69 MG/DL (0.60-1.30); POTASSIUM 3.6 MMOL/L (3.6-5.0)
--- NOTE | 2022-04-06 09:58 | Diagnostic Imaging Report ---
INDICATION: COVID patient with cough COMPARISON: 03.31 FINDINGS: This is similar diffuse interstitial opacities in the left lung present however greater consolidation in the mid to lower 3rd of the right lung showed progression. No definite pleural fluid. No pneumothorax. IMPRESSION: Consolidating infiltrates in the right lung have progressed with the more diffuse 5 lobe interstitial prominence superimposed unchanged. Dictated by: Dictated on workstation # [id number]
[2022-04-06 12:42] VITALS: BP 137/74
== END 2022-04-06 12:42 | disposition home or self-care (01) ==
LOC: EDUNIT# 08:51 → ER 08:52
DX: U07.1 COVID-19 (principal); J12.82 Pneumonia due to coronavirus disease 2019; J44.9 Chronic obstructive pulmonary disease, unspecified; I12.0 Hypertensive chronic kidney disease with stage 5 chronic kidney disease or end stage renal disease; N18.6 End stage renal disease; F17.210 Nicotine dependence, cigarettes, uncomplicated; Z99.2 Dependence on renal dialysis
CPT/HCPCS: 36415; 71045; 80048; 82947; 85025

== ENCOUNTER 2022-04-18 01:21 | Emergency (ER) | payer MEDICARE ==
[~2022-04-18] VITALS: Ht 167.7 cm; Wt 66.7 kg
[2022-04-18] MEDS ORDERED: ANTACID SUSP 30 ML UDC (MYLANTA) PO ONE (02:00)
[2022-04-18] MEDS ORDERED: LIDOCAINE 2% VISCOUS 15 ML UDC PO ONE (02:00)
--- NOTE | 2022-04-18 02:25 | ED Chest Pain ---
General Chief Complaint: Chest Pain Stated Complaint: CHEST PAIN Nursing Triage Note: TO ED VIA [facility] FROM [facility]. 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 STATES THIS IS PAIN THAT IS CONSTANT AND RADIATES ACROSS CHEST. WEARS O2 AT 3L CONTINUOUSLY. HX LUNG CA AND DIALYSIS. Source: patient, EMS Exam Limitations: no limitations History of Present Illness Date Seen by Provider: Apr 18, 2022 Time Seen by Provider: 01:27 Initial Comments Here with report of onset of chest pain approximately an hour ago. Here by EMS. EMS reports the patient reported central chest pain that was burning and worse with coughing. Patient confirms this and states pain is moderate in intensity and central. EMS reports hypotension in sinus rhythm on monitor and twelve- lead. No obvious ST elevation PR in their evaluation. Patient does have history of end-stage renal disease on dialysis with last dialysis on Tuesday. Also has lung cancer that he is being followed with by Dr. Rubio. Patient is on Eliquis 2.5 mg. Timing/Duration: 1 hour Severity/Quality: moderate, burning, sharp Location: central Radiation: no radiation Prior CP/Workup: echocardiography, stress test Modifying Factors: improves with rest ASA po SOUND EFFECTS SUPERVISOR: Yes (324 mg by EMS) NTG SL SOUND EFFECTS SUPERVISOR: No Associated Symptoms: No abdominal pain, No back pain, No diaphoresis, No dizziness, No fever/chills; headache, shortness of breath, weakness Allergies and Home Medications Allergies Coded Allergies: Penicillins (Unverified Allergy, Unknown, 09/06/11) Wjklsna-BTL-ObR Reductase Inhibitor (Verified Allergy, Unknown, 03/30/21) hydrocodone (Verified Allergy, Unknown, 03/30/21) meperidine (Unverified Allergy, Unknown, 05/04/10) ramipril (Verified Allergy, Unknown, 03/30/21) naproxen (Verified Adverse Reaction, Unknown, 03/30/21) Patient Home Medication List Home Medication List Reviewed: Yes Acetaminophen (Acetaminophen) 325 Mg Tablet, 2 TAB PO Q6H PRN for PAIN-MILD (1- 4), (Reported) Entered as Reported by: COLEMAN [place] on 03/30/21 0843 Albuterol Sulfate (Ventolin Hfa) 1 Puff Puff, 2 PUFF IH Q4H PRN for SHORTNESS OF BREATH, (Reported) Entered as Reported by: COLEMAN [place] on 03/30/21902 Allopurinol (Allopurinol) 100 Mg Tablet, 100 MG PO DAILY, (Reported) Entered as Reported by: COLEMAN [place] on 03/30/21902 Aspirin (Adult Low Dose Aspirin EC) 81 Mg Tablet.dr, 81 MG PO DAILY, (Reported) Entered as Reported by: COLEMAN [place] on 03/30/21842 Atenolol (Atenolol) 25 Mg Tablet, 12.5 MG PO DAILY PRN for BLOOD PRESSURE, (Reported) Entered as Reported by: COLEMAN [place] on 03/30/21842 Gabapentin (Neurontin) 100 Mg Capsule, 100 MG PO TID, (Reported) Entered as Reported by: COLEMAN [place] on 03/30/21902 Lansoprazole (Lansoprazole) 30 Mg Capsule.dr, 30 MG PO DAILY, (Reported) Entered as Reported by: COLEMAN [place] on 03/30/21902 Nitroglycerin (Nitroglycerin) 0.4 Mg Tab.subl, 0.4 MG SL UD PRN for CHEST PAIN, (Reported) Entered as Reported by: COLEMAN [place] on 03/30/21902 Ropinirole HCl (Ropinirole HCl) 3 Mg Tablet, 3 MG PO BID, (Reported) Entered as Reported by: COLEMAN [place] on 03/30/21902 Sevelamer Carbonate (Renvela) 800 Mg Tablet, 3 TAB PO TID, (Reported) Entered as Reported by: COLEMAN [place] on 03/30/21902 Sevelamer Carbonate (Renvela) 800 Mg Tablet, 1 TAB PO HS, (Reported) Entered as Reported by: COLEMAN [place] on 03/30/21902 Tramadol HCl (Tramadol HCl) 50 Mg Tablet, 50 MG PO Q8H PRN for PAIN-MODERATE (5- 7), (Reported) Entered as Reported by: COLEMAN [place] on 03/30/21902 Review of Systems Review of Systems Constitutional: No chills, No fever; weakness EENTM: No Nose Congestion, No Throat Pain Respiratory: Denies Cough; Shortness of Air Cardiovascular: Chest Pain; Denies Edema Gastrointestinal: Nausea; Denies Vomiting Genitourinary: No Symptoms Reported Musculoskeletal: no symptoms reported All Other Systems Reviewed Negative Unless Noted: Yes Past Wziqxeh-Lansqe-Pizglz Hx Patient Social History Tobacco Use?: No Use of E-Cig and/or Vaping dev: No Substance use?: No Alcohol Use?: No Immunizations Up To Date Tetanus Booster (TDap): Unknown Influenza Vaccine Up-to-Date: No; Not Current First/Initial COVID19 Vaccinat: 08/10/20 Second COVID19 Vaccination Dionte: UNKNOWN Third COVID19 Vaccination Date: 08/10/20 COVID19 Vaccine Tier Truck Driver: DENIES Seasonal Allergies Seasonal Allergies: No Past Medical History Surgery/Hospitalization HX: ESRD, LUNG CANCER WITH RADIATION, HTN, DIALYSIS Surgeries: Yes (BONE SPURS ON BILAT FEET, CYST REMOVED FROM LOWER JAW, ARM A CHILD) Orthopedic Respiratory: Yes COPD Cardiac: Yes Coronary Artery Disease, High Cholesterol, Hypertension, Peripheral Vascular Neurological: Yes Neuropathy Reproductive Disorders: No Genitourinary: Yes Renal Failure, Dialysis Gastrointestinal: Yes Gastroesophageal Reflux Musculoskeletal: Yes Arthritis, Gout Endocrine: No HEENT: No Cancer: No Psychosocial: No Integumentary: No Blood Disorders: No Family Medical History Reviewed Nursing Family Hx No Pertinent Family Hx Physical Exam Vital Signs Vital Signs - First Documented Capillary Refill : Less Than 3 Seconds Height, Weight, BMI Height: 5'6" Weight: 148lbs. 11.0oz. 67.298201st; 23.00 BMI Method:Stated General Appearance: Mild Distress HEENT: PERRL/EOMI, Pharynx Normal Neck: Non Tender, Supple Respiratory: Lungs Clear, Normal Breath Sounds Cardiovascular: Regular Rate, Rhythm, No Murmur Gastrointestinal: No Pulsatile Mass, Non Tender, Soft Extremity: Normal Range of Motion, Non Tender, No Calf Tenderness Neurologic/Psychiatric: Alert, Oriented x3 Skin: Normal Color, Warm/Dry Progress/Results/Core Measures Results/Orders Lab Results Laboratory Tests Test 04/18/22 02:00 04/18/22 04:19 Range/Units White Blood Count 9.5 4.3-11.0 10^3/uL Red Blood Count 4.21 L 4.30-5.52 10^6/uL Hemoglobin 12.0 L 13.3-17.7 g/dL Hematocrit 38 L 40-54 % Mean Corpuscular Volume 90 80-99 fL Mean Corpuscular Hemoglobin 29 25-34 pg Mean Corpuscular Hemoglobin Concent 32 32-36 g/dL Red Cell Distribution Width 15.5 H 10.0-14.5 % Platelet Count 300 130-400 10^3/uL Mean Platelet Volume 10.8 9.0-12.2 fL Immature Granulocyte % (Auto) 2 % Neutrophils (%) (Auto) 63 42-75 % Lymphocytes (%) (Auto) 17 12-44 % Monocytes (%) (Auto) 13 H 0-12 % Eosinophils (%) (Auto) 4 0-10 % Basophils (%) (Auto) 1 0-10 % Neutrophils # (Auto) 6.0 1.8-7.8 10^3/uL Lymphocytes # (Auto) 1.7 1.0-4.0 10^3/uL Monocytes # (Auto) 1.2 H 0.0-1.0 10^3/uL Eosinophils # (Auto) 0.4 H 0.0-0.3 10^3/uL Basophils # (Auto) 0.1 0.0-0.1 10^3/uL Immature Granulocyte # (Auto) 0.2 H 0.0-0.1 10^3/uL Prothrombin Time 13.3 12.2-14.7 SEC INR Comment 1.0 0.8-1.4 Activated Partial Thromboplast Time 34 24-35 SEC Sodium Level 136 135-145 MMOL/L Potassium Level 3.1 L 3.6-5.0 MMOL/L Chloride Level 90 L 98-107 MMOL/L Carbon Dioxide Level 29 21-32 MMOL/L Anion Gap 17 H 5-14 MMOL/L Blood Urea Nitrogen 20 H 7-18 MG/DL Creatinine 4.79 H 0.60-1.30 MG/DL Estimat Glomerular Filtration Rate 11 BUN/Creatinine Ratio 4 Glucose Level 115 H 70-105 MG/DL Calcium Level 9.8 8.5-10.1 MG/DL Corrected Calcium 10.4 H 8.5-10.1 MG/DL Magnesium Level 1.8 1.6-2.4 MG/DL Total Bilirubin 0.7 0.1-1.0 MG/DL Aspartate Amino Transf (AST/SGOT) 20 5-34 U/L Alanine Aminotransferase (ALT/SGPT) 13 0-55 U/L Alkaline Phosphatase 74 40-136 U/L Myoglobin 177.1 H 10.0-92.0 NG/ML Troponin I 0.050 H 0.045 H <0.028 NG/ML B-Type Natriuretic Peptide 94.7 <100.0 PG/ML Total Protein 7.3 6.4-8.2 GM/DL Albumin 3.3 3.2-4.5 GM/DL My Orders Orders - JONI MEEK MD Cbc With Automated Diff (04/18/22) Magnesium (04/18/22) Chest 1 View, Ap/Pa Only (04/18/22) Ekg Tracing (04/18/22) Comprehensive Metabolic Panel (04/18/22) Myoglobin Serum (04/18/22) Protime With Inr (04/18/22) Partial Thromboplastin Time (04/18/22) O2 (04/18/22) Monitor-Rhythm Ecg Trace Only (04/18/22) Lipid Panel (04/19/22 06:00) Ed Iv/Invasive Line Start (04/18/22) Bnp Traverse (04/18/22) Troponin I Bruna (04/18/22) Lidocaine 2% Viscous 15 Ml (Xylocaine Vi (04/18/22 02:00) Antacid Suspension (Mylanta Suspension (04/18/22 02:00) Troponin I Bruna (04/18/22 04:00) Medications Given in ED Current Medications Medications Dose Ordered Sig/Graciela Route Start Time Stop Time Status Last Admin Dose Admin Al Hydrox/Mg Hydrox/Simethicone 30 ml ONCE ONCE PO 04/18/22 02:00 04/18/22 02:01 DC 04/18/22 01:56 30 ML Lidocaine HCl 15 ml ONCE ONCE PO 04/18/22 02:00 04/18/22 02:01 DC 04/18/22 01:56 15 ML Vital Signs/I&O 04/18/22 04/18/22 04/18/22 01:24 01:24 01:35 Temp 36.3 Pulse 76 Resp 22 B/P (MAP) 189/82 (117) Pulse Ox 97 O2 Delivery Nasal Cannula Nasal Cannula Nasal Cannula O2 Flow Rate 3.00 3.00 3.00 Blood Pressure Mean: 117 Progress Progress Note : Progress Note Seen and evaluated. IV by myself via ultrasound guidance due to difficult stick. IV to left AC x2 sticks with 20-gauge long needle. CBC, CMP, BNP and troponin ordered. EKG and chest x-ray ordered. He is already had his aspirin by EMS. We will go ahead and initiate GI cocktail and see if that helps. Monitor patient. 0308: Patient's CBC is nonconcerning with normal white count. Chest x-ray as noted below shows large right-sided mass that does not appear changed from previous. Chemistry shows elevated creatinine which was expected but potassium is not elevated. Troponin is slightly elevated as well as myoglob in. This may be related to the end-stage renal disease. We will repeat troponin at the 2-hour bridget and evaluate for rise. This was discussed with the patient and family who agree. Monitor patient. 0500: Troponin has declined. Patient remains chest pain-free. No indication for admission or transfer. He does need to follow-up with his bead stringer. I will send a copy of the note to his oncologist. Patient will need to call his bead stringer for follow-up. I will also send a copy of the note to his primary care physician. Discharged back to care facility with return precautions. Patient verbalized understanding of instructions and agreement with plan. Initial ECG Impression Date: Apr 18, 2022 Initial ECG Impression Time: 01:33 Initial ECG Rate: 75 Initial ECG Rhythm: Normal Sinus Comment Sinus rhythm with normal axis with LVH. No evidence of ST elevation PR. Overall similar in appearance to 05/04/2020. Interpreted by me. Diagnostic Imaging Diagonstic Imaging: Xray Plain Films/CT/US/NM/MRI: chest Comments Large consolidation in the right lung that seems similar to previous on my interpretation. Pending radiology report. Reviewed: Reviewed by Me Departure Impression Primary Impression: Chest pain Qualified Codes: R07.9 - Chest pain, unspecified Disposition: 01 HOME, SELF-CARE Condition: Improved Departure-Patient Inst. Decision time for Depature: 05:05 Referrals: KRISTEN NA JOHN D MD (PCP/Family) Primary Care Physician Patient Instructions: Chest Pain (DC) Add. Discharge Instructions: All discharge instructions reviewed with patient and/or family. Voiced understanding. You should follow-up with your bead stringer this week for recheck and further evaluation. Call his office for appointment. Continue dialysis as scheduled. Follow-up with your oncologist and/or primary care physician this week for recheck and further evaluation as well. Continue home medications as previously prescribed. Return for worse pain, fever, vomiting, weakness, breathing problems, chest pain or other concerns as needed. Copy Copies To 1: KRISTEN AN Copies To 2: LILIANA IRBY MD, TIMOTHY D MD Apr 18, 2022 02:25
[2022-04-18 02:41] LABS: BASOPHILS # (AUTO) 0.1 10^3/uL (0.0-0.1); BASOPHILS % (AUTO) 1 % (0-10); EOSINOPHILS # (AUTO) 0.4 10^3/uL (0.0-0.3); EOSINOPHILS % (AUTO) 4 % (0-10); HEMATOCRIT 38 % (40-54); LYMPHOCYTES # (AUTO) 1.7 10^3/uL (1.0-4.0); LYMPHOCYTES % (AUTO) 17 % (12-44); MEAN CORPUSCULAR HEMOGLOBIN 29 pg (25-34); MEAN CORPUSCULAR HGB CONC 32 g/dL (32-36); MEAN CORPUSCULAR VOLUME 90 fL (80-99); MEAN PLATELET VOLUME 10.8 fL (9.0-12.2); MONOCYTES # (AUTO) 1.2 10^3/uL (0.0-1.0); MONOCYTES % (AUTO) 13 % (0-12); NEUTROPHILS % (AUTO) 63 % (42-75); PLATELET COUNT 300 10^3/uL (130-400); WHITE BLOOD COUNT 9.5 10^3/uL (4.3-11.0)
[2022-04-18 02:46] LABS: ALBUMIN 3.3 GM/DL (3.2-4.5); BILIRUBIN,TOTAL 0.7 MG/DL (0.1-1.0); CALCIUM 9.8 MG/DL (8.5-10.1); CREATININE SERUM 4.79 MG/DL (0.60-1.30); MAGNESIUM 1.8 MG/DL (1.6-2.4); POTASSIUM 3.1 MMOL/L (3.6-5.0); TOTAL PROTEIN 7.3 GM/DL (6.4-8.2)
[2022-04-18 02:47] LABS: PROTHROMBIN TIME PATIENT 13.3 SEC (12.2-14.7)
[2022-04-18 05:12] VITALS: BP 161/77
--- NOTE | 2022-04-18 07:25 | Diagnostic Imaging Report ---
INDICATION: Chest pain. COMPARISON: 04/06/2022. FINDINGS: There is persistent dense airspace consolidation present within the right lung that has not significantly changed from the prior exam. This most likely is reflective of pneumonia but needs to be followed to resolution given patient's background risk factors of emphysema. The interstitial changes are otherwise stable. There is no large effusion. There is no pneumothorax. The heart size is unchanged. 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 This needs to be followed to resolution to exclude an underlying mass. Dictated by: Dictated on workstation # [id number]
== END 2022-04-18 05:27 | disposition home or self-care (01) ==
LOC: EDUNIT# 01:21 → ER 01:22
DX: R07.9 Chest pain, unspecified (principal); R79.89 Other specified abnormal findings of blood chemistry; I12.0 Hypertensive chronic kidney disease with stage 5 chronic kidney disease or end stage renal disease; N18.6 End stage renal disease; C34.00 Malignant neoplasm of unspecified main bronchus; Z28.310 Unvaccinated for COVID-19; Z92.3 Personal history of irradiation; Z79.01 Long term (current) use of anticoagulants; Z99.2 Dependence on renal dialysis
CPT/HCPCS: 36415; 71045; 80053; 83735; 83874; 83880; 84484; 85025; 85610; 85730; 93005; 93041

== ENCOUNTER 2022-04-22 06:41 | Emergency (ER) | payer MEDICARE ==
--- NOTE | 2022-04-22 06:47 | ED General ---
General Chief Complaint: Overdose Stated Complaint: TOOK HIS & WIFES MEDS Source of Information: Patient History of Present Illness Date Seen by Provider: Apr 22, 2022 Time Seen by Provider: 06:47 Initial Comments Patient is an 89-year-old male brought to the emergency room from a local assisted living facility chief complaint accidental overdose of his 's daily medications. Patient apparently misunderstood that the 2 cups of medications were not both intended for him. He took his as well as his 's. He has a copy of his 's medications which include Lasix, isosorbide mononitrate, amiodarone. She also takes a blood sugar pill. These are the ones which might affect him the most in addition to his own. He is slightly hypotensive with a systolic blood pressure of 88. He is awake alert, answering questions. He states he felt a little dizzy when the ambulance arrived at the assisted living facility. Denies recent illness, no chest pain, nausea, vomiting. He states he did not sleep well last night. No reported fevers or problems with bowel or bladder. He is a hemodialysis patient, dialyzing Tuesday. He did dialyze his normal time yesterday. No shortness of breath. He is on his normal daily oxygen at 2 to 3 L with a normal oxygen saturation at this time. All other review of systems reviewed and negative except as stated. Timing/Duration: 1 Hour Severity: Mild Associated Systoms: Denies Symptoms Allergies and Home Medications Allergies Coded Allergies: Penicillins (Unverified Allergy, Unknown, 09/06/11) Swsnyge-HBH-JkY Reductase Inhibitor (Verified Allergy, Unknown, 03/30/21) hydrocodone (Verified Allergy, Unknown, 03/30/21) meperidine (Unverified Allergy, Unknown, 05/04/10) ramipril (Verified Allergy, Unknown, 03/30/21) naproxen (Verified Adverse Reaction, Unknown, 03/30/21) Patient Home Medication List Home Medication List Reviewed: Yes Acetaminophen (Acetaminophen) 325 Mg Tablet, 2 TAB PO Q6H PRN for PAIN-MILD (1- 4), (Reported) Entered as Reported by: COLEMAN [place] on 03/30/21 0843 Albuterol Sulfate (Ventolin Hfa) 1 Puff Puff, 2 PUFF IH Q4H PRN for SHORTNESS OF BREATH, (Reported) Entered as Reported by: COLEMAN [place] on 03/30/21902 Allopurinol (Allopurinol) 100 Mg Tablet, 100 MG PO DAILY, (Reported) Entered as Reported by: COLEMAN [place] on 03/30/21902 Aspirin (Adult Low Dose Aspirin EC) 81 Mg Tablet.dr, 81 MG PO DAILY, (Reported) Entered as Reported by: COLEMAN [place] on 03/30/21842 Atenolol (Atenolol) 25 Mg Tablet, 12.5 MG PO DAILY PRN for BLOOD PRESSURE, (Reported) Entered as Reported by: COLEMAN [place] on 03/30/21842 Gabapentin (Neurontin) 100 Mg Capsule, 100 MG PO TID, (Reported) Entered as Reported by: COLEMAN [place] on 03/30/21902 Lansoprazole (Lansoprazole) 30 Mg Capsule.dr, 30 MG PO DAILY, (Reported) Entered as Reported by: COLEMAN [place] on 03/30/21902 Nitroglycerin (Nitroglycerin) 0.4 Mg Tab.subl, 0.4 MG SL UD PRN for CHEST PAIN, (Reported) Entered as Reported by: COLEMAN [place] on 03/30/21902 Ropinirole HCl (Ropinirole HCl) 3 Mg Tablet, 3 MG PO BID, (Reported) Entered as Reported by: COLEMAN [place] on 03/30/21902 Sevelamer Carbonate (Renvela) 800 Mg Tablet, 3 TAB PO TID, (Reported) Entered as Reported by: COLEMAN [place] on 03/30/21902 Sevelamer Carbonate (Renvela) 800 Mg Tablet, 1 TAB PO HS, (Reported) Entered as Reported by: COLEMAN [place] on 03/30/21902 Tramadol HCl (Tramadol HCl) 50 Mg Tablet, 50 MG PO Q8H PRN for PAIN-MODERATE (5- 7), (Reported) Entered as Reported by: COLEMAN [place] on 03/30/21902 Review of Systems Review of Systems Constitutional: see HPI EENTM: no symptoms reported Respiratory: no symptoms reported Cardiovascular: no symptoms reported Gastrointestinal: no symptoms reported Genitourinary: no symptoms reported Musculoskeletal: no symptoms reported Skin: no symptoms reported Psychiatric/Neurological: Other ("dizzy") All Other Systems Reviewed Negative Unless Noted: Yes Past Iznjkoe-Kqigkq-Vxknbm Hx Immunizations Up To Date Tetanus Booster (TDap): Unknown First/Initial COVID19 Vaccinat: 08/10/20 Second COVID19 Vaccination Dionte: UNKNOWN Third COVID19 Vaccination Date: 08/10/20 Seasonal Allergies Seasonal Allergies: No Past Medical History Surgery/Hospitalization HX: ESRD, LUNG CANCER WITH RADIATION, HTN, DIALYSIS Surgeries: Yes (BONE SPURS ON BILAT FEET, CYST REMOVED FROM LOWER JAW, ARM A CHILD) Orthopedic Respiratory: Yes COPD Cardiac: Yes Coronary Artery Disease, High Cholesterol, Hypertension, Peripheral Vascular Neurological: Yes Neuropathy Reproductive Disorders: No Genitourinary: Yes Renal Failure, Dialysis Gastrointestinal: Yes Gastroesophageal Reflux Musculoskeletal: Yes Arthritis, Gout Endocrine: No HEENT: No Cancer: No Psychosocial: No Integumentary: No Blood Disorders: No Family Medical History No Pertinent Family Hx Physical Exam Vital Signs Vital Signs - First Documented Capillary Refill : Height, Weight, BMI Height: 5'6" Weight: 148lbs. 11.0oz. 67.011748px; 23.00 BMI Method:Stated General Appearance: No Apparent Distress, Thin Eyes: Bilateral Eye Normal Inspection, Bilateral Eye PERRL, Bilateral Eye EOMI HEENT: PERRL/EOMI Neck: Normal Inspection Respiratory: Lungs Clear, Normal Breath Sounds, No Accessory Muscle Use, No Respiratory Distress Cardiovascular: Regular Rate, Rhythm, Normal Peripheral Pulses Gastrointestinal: Non Tender, Soft Extremity: Normal Inspection Neurologic/Psychiatric: Alert, Oriented x3, No Motor/Sensory Deficits, Normal Mood/Affect Skin: Normal Color, Warm/Dry Progress/Results/Core Measures Suspected Sepsis SIRS Temperature: Pulse: Respiratory Rate: Blood Pressure / Mean: Results/Orders Lab Results Laboratory Tests Test 04/22/22 07:03 Range/Units Glucometer 100 70-110 MG/DL My Orders Orders - GINETTE SYKES MD Accucheck Stat ONCE (04/22/22 06:58) Ns (Ivpb) (Sodium Chloride 0.9%) (04/22/22 07:00) Albumin 25% 25 Gm/100 Ml (Albumin 25% 25 (04/22/22 08:00) General/Regular (04/22/22 Breakfast) Midodrine Tablet (Proamatine) (12/15/22 10:23) Medications Given in ED Current Medications Medications Dose Ordered Sig/Graciela Route Start Time Stop Time Status Last Admin Dose Admin Albumin Human 100 ml @ 50 mls/hr ONCE ONCE IV 04/22/22 08:00 04/22/22 09:59 DC 04/22/22 08:18 50 MLS/HR Sodium Chloride 250 ml @ 999 mls/hr Q16M ONCE IV 04/22/22 07:00 04/22/22 07:15 DC 04/22/22 07:03 999 MLS/HR Vital Signs/I&O 04/22/22 04/22/22 06:42 06:42 Temp 36.4 Pulse 71 Resp 20 B/P (MAP) 86/47 (60) Pulse Ox 93 O2 Delivery Nasal Cannula Nasal Cannula O2 Flow Rate 3.00 3.00 Capillary Refill : Progress Note #1: Time: 07:51 Progress Note NOtified by RN that his small bolus of 250ml went in quickly. No real response from his BP. Will add some albumin. He's down to a systolic of 69. But still mentating. (although very sleepy). Progress Note #2: Time: 10:31 Progress Note Care and case discussed with Dr. Ava Calvillo. She recommends 5 mg of midodrine p.o. She would like the patient observed until his systolic blood pressure is improved on standing. Progress Note #3: Time: 11:43 Progress Note Patient is sitting up in the chair, eating a little snack. Over the last 30 minutes his blood pressure has been consistently 100-110. We will watch him another 30 minutes as the midodrine starts to kick in and anticipate sending him back to the care home. I called [facility] at the request of family to have them hold a couple of lunches for he and his . Progress Note #4: Time: 12:26 Progress Note Mr. Maloney remains asymptomatic from low blood pressure. He was stood up and his blood pressure is 95/52. He is not dizzy/orthostatic at all. He is comfortable with going home as is his daughter and . I recommended no blood pressure medicines for the rest of today. He can be reassessed at dialysis tomorrow. He is having no chest pain, nausea, shortness of breath. His is going to drive him back to [facility]. He remains neurologically intact without focal deficits. Family seems comfortable with plan of care. All questions are sought and answered. Departure Impression Primary Impression: Accidental medication overdose Qualified Codes: T50.901A - Poisoning by unspecified drugs, medicaments and biological substances, accidental (unintentional), initial encounter Additional Impression: Hypotensive episode Disposition: 01 HOME, SELF-CARE Condition: Improved Departure-Patient Inst. Decision time for Depature: 11:44 Referrals: LILIANA IRBY MD (PCP/Family) Primary Care Physician Patient Instructions: Low Blood Pressure (DC) Add. Discharge Instructions: Take your normal daily medications in the morning as prescribed. The dialysis center can recheck your blood pressure tomorrow as a part of their usual routine. If before you see the dialysis center in the morning you have any symptoms of shortness of breath, dizziness, headache or vomiting please come back to the emergency room for reevaluation. Copy Copies To 1: AVA CALVILLO MD Copies To 2: LILIANA IRBY MD, KATHRYN M MD Apr 22, 2022 06:47
[2022-04-22] MEDS ORDERED: NS (IVPB) 250 ML IV ONE (07:00)
[2022-04-22] MEDS ORDERED: ALBUMIN 25% 25 GM/100 ML 100 ML IV ONE (08:00)
[2022-04-22] MEDS ORDERED: MIDODRINE 10 MG (PROAMATINE) TAB PO STA (10:23)
[2022-04-22 12:30] VITALS: BP 95/52
== END 2022-04-22 12:30 | disposition home or self-care (01) ==
LOC: EDUNIT# 06:41 → ER 06:43
DX: T50.1X1A Poisoning by loop [high-ceiling] diuretics, accidental (unintentional), initial encounter (principal); T46.3X1A Poisoning by coronary vasodilators, accidental (unintentional), initial encounter; T46.2X1A Poisoning by other antidysrhythmic drugs, accidental (unintentional), initial encounter; I95.89 Other hypotension; J44.9 Chronic obstructive pulmonary disease, unspecified; I12.0 Hypertensive chronic kidney disease with stage 5 chronic kidney disease or end stage renal disease; N18.6 End stage renal disease; Z99.2 Dependence on renal dialysis; Z99.81 Dependence on supplemental oxygen
CPT/HCPCS: 82947

== ENCOUNTER 2022-04-28 20:02 | Emergency (ER) | payer MEDICARE ==
--- NOTE | 2022-04-28 20:20 | ED Fall/Injury ---
General Chief Complaint: Trauma-Non Activation Stated Complaint: FALL Nursing Triage Note: PT TO RM 6 BY [facility] FROM [facility] WITH C/O FALL FROM STANDING. PT STRUCK HEAD ON WOODEN BEDSIDE TABLE. PT DENIES LOC OR PAIN ELSEWHERE Source: patient History of Present Illness Date Seen by Provider: Apr 28, 2022 Time Seen by Provider: 20:04 Initial Comments PT ARRIVES VIA EMS FROM [facility], PT LIVES THERE WITH HIS PT STOOD UP, GOT DIZZY AND FELL, HITTING HIS LEFT FOREHEAD/BROW AREA ON A BEDSIDE TABLE NO LOSS OF CONSCIOUSNESS NO NECK PAIN NO HEADACHE NO DIZZINESS NOW PT STATES HE ALWAYS GETS DIZZY WHEN HE STANDS UP, AND TODAY WAS NO DIFFERENT THAN NORMAL. PT DENIES PAIN ANYWHERE AT THIS TIME, STATES HIS HEAD DOESN'T EVEN HURT NOW. PT IS DIALYSIS PATIENT, AND HAD DIALYSIS TODAY HE IS NOT ON ASPIRIN OR BLOOD THINNERS. PT WEARS O2 AT 3L/NC CONTINUOUSLY. PT DID NOT ARRIVE WITH ANY OXYGEN BY EMS PT STATES HE HAS HAD COVID AND PNEUMONIA IN THE LAST 6 WEEKS, AND STILL HAS SOME CONTINUED COUGH AND CONGESTION Allergies and Home Medications Allergies Coded Allergies: Penicillins (Unverified Allergy, Unknown, 09/06/11) Qaofbho-MFE-QbX Reductase Inhibitor (Verified Allergy, Unknown, 03/30/21) hydrocodone (Verified Allergy, Unknown, 03/30/21) meperidine (Unverified Allergy, Unknown, 05/04/10) ramipril (Verified Allergy, Unknown, 03/30/21) naproxen (Verified Adverse Reaction, Unknown, 03/30/21) Patient Home Medication List Acetaminophen (Acetaminophen) 325 Mg Tablet, 2 TAB PO Q6H PRN for PAIN-MILD (1- 4), (Reported) Entered as Reported by: COLEMAN [place] on 03/30/21 0843 Albuterol Sulfate (Ventolin Hfa) 1 Puff Puff, 2 PUFF IH Q4H PRN for SHORTNESS OF BREATH, (Reported) Entered as Reported by: COLEMAN [place] on 03/30/21 0903 Allopurinol (Allopurinol) 100 Mg Tablet, 100 MG PO DAILY, (Reported) Entered as Reported by: COLEMAN [place] on 03/30/21 0903 Aspirin (Adult Low Dose Aspirin EC) 81 Mg Tablet.dr, 81 MG PO DAILY, (Reported) Entered as Reported by: COLEMAN [place] on 03/30/21842 Atenolol (Atenolol) 25 Mg Tablet, 12.5 MG PO DAILY PRN for BLOOD PRESSURE, (Reported) Entered as Reported by: COLEMAN [place] on 03/30/21842 Cefdinir (Cefdinir) 300 Mg Capsule, 300 MG PO BID Prescribed by: CHARLES FUENTES on 04/28/222121 Doxycycline Hyclate (Doxycycline Hyclate) 100 Mg Tablet, 100 MG PO BID Prescribed by: CHARLES FUENTES on 04/28/222121 Gabapentin (Neurontin) 100 Mg Capsule, 100 MG PO TID, (Reported) Entered as Reported by: COLEMAN [place] on 03/30/21902 Lansoprazole (Lansoprazole) 30 Mg Capsule.dr, 30 MG PO DAILY, (Reported) Entered as Reported by: COLEMAN [place] on 03/30/21902 Nitroglycerin (Nitroglycerin) 0.4 Mg Tab.subl, 0.4 MG SL UD PRN for CHEST PAIN, (Reported) Entered as Reported by: COLEMAN [place] on 03/30/21902 Ropinirole HCl (Ropinirole HCl) 3 Mg Tablet, 3 MG PO BID, (Reported) Entered as Reported by: CLOEMAN [place] on 03/30/21902 Sevelamer Carbonate (Renvela) 800 Mg Tablet, 3 TAB PO TID, (Reported) Entered as Reported by: COLEMAN [place] on 03/30/21902 Sevelamer Carbonate (Renvela) 800 Mg Tablet, 1 TAB PO HS, (Reported) Entered as Reported by: COLEMAN [place] on 03/30/21902 Tramadol HCl (Tramadol HCl) 50 Mg Tablet, 50 MG PO Q8H PRN for PAIN-MODERATE (5- 7), (Reported) Entered as Reported by: COLEMAN [place] on 03/30/21902 Review of Systems Review of Systems Constitutional: see HPI Eyes: No Symptoms Reported Ears, Nose, Mouth, Throat: no symptoms reported Respiratory: no symptoms reported Cardiovascular: no symptoms reported Gastrointestinal: no symptoms reported Genitourinary: no symptoms reported Musculoskeletal: no symptoms reported; No back pain, No joint pain, No neck pa in Skin: other (HEMATOMA AND SLIGHT ABRASION TO LEFT FOREHEAD) Psychiatric/Neurological: No Symptoms Reported; Denies Headache, Denies Numbness, Denies Paresthesia, Denies Tingling, Denies Weakness Past Wvekuoa-Cdzakx-Stqzah Hx Patient Social History Tobacco Use?: No Substance use?: No Alcohol Use?: No Pt feels they are or have been: No Immunizations Up To Date Tetanus Booster (TDap): Unknown Influenza Vaccine Up-to-Date: Yes; Up-to-Date First/Initial COVID19 Vaccinat: DENIES Second COVID19 Vaccination Dionte: UNKNOWN Third COVID19 Vaccination Date: UNKNOWN Seasonal Allergies Seasonal Allergies: No Past Medical History Surgery/Hospitalization HX: ESRD, LUNG CANCER WITH RADIATION, HTN, DIALYSIS Surgeries: Yes (BONE SPURS ON BILAT FEET, CYST REMOVED FROM LOWER JAW, ARM A CHILD) Dialysis, Orthopedic Respiratory: Yes (O2 AT 3L/NC CONTINUOUSLY) COPD Cardiac: Yes Coronary Artery Disease, High Cholesterol, Hypertension, Peripheral Vascular Neurological: Yes Neuropathy Reproductive Disorders: No Genitourinary: Yes Renal Failure, Dialysis Gastrointestinal: Yes Gastroesophageal Reflux Musculoskeletal: Yes Arthritis, Fractures, Gout Endocrine: No HEENT: No Cancer: No Psychosocial: No Integumentary: No Blood Disorders: No Family Medical History No Pertinent Family Hx Physical Exam Vital Signs Vital Signs - First Documented 04/28/22 20:06 Temp 35.8 Pulse 78 Resp 20 B/P (MAP) 183/83 (116) Pulse Ox 95 O2 Delivery Nasal Cannula O2 Flow Rate 3.00 Capillary Refill : Height, Weight, BMI Height: 5'6" Weight: 148lbs. 11.0oz. 67.964260se; 23.00 BMI Method:Stated General Appearance: WD/WN, no apparent distress HEENT: PERRL/EOMI, other (EDENTULOUS; LARGE HEMATOMA TO LEFT BROW, WITH VERY SMALL SUPERFICIAL ABRASION, NO BLEEDING. EDENTULOUS. NO MAXILLARY OR MANDIBULAR PAIN. SLIGHT TENDERNESS TO LEFT BROW AREA. ) Neck: non-tender Cardiovascular: regular rate, rhythm Respiratory: chest non-tender, normal breath sounds Gastrointestinal: non tender, soft Extremities: normal range of motion, non-tender, normal capillary refill, pedal edema (1+ EDEMA BILATERALLY), other (A-V FISTULA RIGHT ARM. ) Neurologic/Psychiatric: no motor/sensory deficits, alert, normal mood/affect, oriented x 3 Skin: normal color, warm/dry, ecchymosis Gay Coma Score Best Eye Response: (4) Open Spontaneously Best Verbal Response: (5) Oriented Best Motor Response: (6) Obeys Commands Gay Total: 15 Progress/Results/Core Measures Results/Orders Lab Results Laboratory Tests Test 04/28/22 21:07 Range/Units White Blood Count 5.7 4.3-11.0 10^3/uL Red Blood Count 4.57 4.30-5.52 10^6/uL Hemoglobin 13.0 L 13.3-17.7 g/dL Hematocrit 41 40-54 % Mean Corpuscular Volume 90 80-99 fL Mean Corpuscular Hemoglobin 28 25-34 pg Mean Corpuscular Hemoglobin Concent 32 32-36 g/dL Red Cell Distribution Width 15.6 H 10.0-14.5 % Platelet Count 238 130-400 10^3/uL Mean Platelet Volume 10.8 9.0-12.2 fL Immature Granulocyte % (Auto) 1 % Neutrophils (%) (Auto) 60 42-75 % Lymphocytes (%) (Auto) 19 12-44 % Monocytes (%) (Auto) 12 0-12 % Eosinophils (%) (Auto) 8 0-10 % Basophils (%) (Auto) 1 0-10 % Neutrophils # (Auto) 3.4 1.8-7.8 10^3/uL Lymphocytes # (Auto) 1.1 1.0-4.0 10^3/uL Monocytes # (Auto) 0.7 0.0-1.0 10^3/uL Eosinophils # (Auto) 0.5 H 0.0-0.3 10^3/uL Basophils # (Auto) 0.1 0.0-0.1 10^3/uL Immature Granulocyte # (Auto) 0.0 0.0-0.1 10^3/uL Sodium Level 138 135-145 MMOL/L Potassium Level 3.4 L 3.6-5.0 MMOL/L Chloride Level 96 L 98-107 MMOL/L Carbon Dioxide Level 24 21-32 MMOL/L Anion Gap 18 H 5-14 MMOL/L Blood Urea Nitrogen 8 7-18 MG/DL Creatinine 2.68 H 0.60-1.30 MG/DL Estimat Glomerular Filtration Rate 22 BUN/Creatinine Ratio 3 Glucose Level 92 70-105 MG/DL Calcium Level 10.7 H 8.5-10.1 MG/DL My Orders Orders - CHARLES FUENTES DO Ct Head/Face/Cervical Wo (04/28/22 20:06) Basic Metabolic Panel (04/28/22 20:13) Cbc With Automated Diff (04/28/22 20:13) Protime With Inr (04/28/22 20:13) Partial Thromboplastin Time (04/28/22 20:13) Chest 1 View, Ap/Pa Only (04/28/22 20:20) Pelvis 1 To 2 Views (04/28/22 20:20) Ceftriaxone (Rocephin) (04/28/22 21:30) Lidocaine 1% Inj 20 Ml (Xylocaine 1% Inj (04/28/22 21:30) Doxycycline Hyclate Tablet (Vibramycin T (04/28/22 21:30) Medications Given in ED Current Medications Medications Dose Ordered Sig/Graciela Route Start Time Stop Time Status Last Admin Dose Admin Ceftriaxone Sodium 1,000 mg ONCE ONCE IM 04/28/22 21:30 04/28/22 21:31 DC 04/28/22 21:31 1,000 MG Lidocaine HCl 2.1 ml ONCE ONCE INJ 04/28/22 21:30 04/28/22 21:31 DC 04/28/22 21:31 2.1 ML Vital Signs/I&O 04/28/22 20:06 Temp 35.8 Pulse 78 Resp 20 B/P (MAP) 183/83 (116) Pulse Ox 95 O2 Delivery Nasal Cannula O2 Flow Rate 3.00 Blood Pressure Mean: 116 Progress Progress Note : Progress Note PT ARRIVES WITHOUT ANY O2 BY EMS. INITIAL O2 SAT 86% ON ROOM AIR. PLACED ON PT'S NORMAL O2 AT 3L/NC, AND SATS QUICKLY UP TO THE MID 90'S. PT DOES NOT C/O DYSPNEA BP WAS IN 200'S SYSTOLIC FOR EMS. PT WITH SEVERE HTN CHRONICALLY. HAS NOT TAKEN PM MEDICATIONS YET. NO COMPLAINTS FOR ENTIRE ER STAY. Departure Impression Primary Impression: Fall from standing Additional Impressions: Periorbital hematoma of left eye Persistent pneumonia COPD O2 DEPENDENT ESRD on dialysis Disposition: 01 HOME, SELF-CARE Condition: Stable Departure-Patient Inst. Decision time for Depature: 21:20 Referrals: LILIANA IRBY MD (PCP/Family) Primary Care Physician Patient Instructions: HEMATOMA, Minor Head Injury, Adult ED, Pneumonia, Adult ED, Preventing Falls ED Add. Discharge Instructions: HOME, REST ICE TO AREA AT 20 MINUTE INTERVALS TYLENOL NEEDED FOR PAIN CONTINUE YOUR REGULAR MEDICATIONS PRESCRIBED KEEP YOUR APPOINTMENT WITH DR. IRBY TOMORROW SCHEDULED All discharge instructions reviewed with patient and/or family. Voiced understanding. Scripts Doxycycline Hyclate (Doxycycline Hyclate) 100 Mg Tablet 100 MG PO BID, #20 TAB 0 Refills Prov: CHARLES FUENTES DO 04/28/22 Cefdinir (Cefdinir) 300 Mg Capsule 300 MG PO BID, #20 CAP Prov: CHARLES FUENTES DO 04/28/22 CHARLES FUENTES DO Apr 28, 2022 20:20
--- NOTE | 2022-04-28 21:08 | Diagnostic Imaging Report ---
Chest 1 view, AP/PA only Indication: Trauma, fall. Comparison: 04/18/2022. Findings: Persistent right midlung zone heterogeneous consolidation. Left lung remains clear. No pleural effusion or pneumothorax. Normal cardiomediastinal silhouette. Impression: 1. No acute abnormality has developed. 2. No change in the right midlung zone heterogeneous consolidations which were previously evaluated with CT on 02/09/2022. Please see that report for more complete details. Dictated by: Dictated on workstation # [id number]
--- NOTE | 2022-04-28 21:10 | Diagnostic Imaging Report ---
Pelvis 1 to 2 views INDICATION: Pelvic pain. COMPARISON: None available. TECHNIQUE: AP view of the pelvis. FINDINGS: Proximal femoral nail with screw fixation throughout the neck. This was used for fixation of old intertrochanteric fracture. No acute displaced fracture within the pelvis. No hip dislocation. No diastasis of the symphysis pubis or SI joints. IMPRESSION: 1. No acute fracture. 2. Prior Gamma nail fixation of intertrochanteric fracture. Dictated by: Dictated on workstation # [id number]
--- NOTE | 2022-04-28 21:14 | Diagnostic Imaging Report ---
PROCEDURE: CT head, face, and cervical spine without contrast. TECHNIQUE: Multiple contiguous axial images were obtained through the head, neck, and facial bones without the use of intravenous contrast. Sagittal and coronal reformations through the cervical spine and facial bones were also performed. Auto Exposure Controls were utilized during the CT exam to meet ALARA standards for radiation dose reduction. INDICATION: Head injury, fall from standing. COMPARISON: 09/19/2021. FINDINGS: Head: No intracranial hyperdense hemorrhage or space-occupying mass. No hydrocephalus or midline shift. Maxwell-white matter differentiation remains preserved. Unchanged global atrophy. Basilar cisterns are widely patent. No acute skull fracture. Paranasal sinuses are clear. Left supraorbital scalp swelling. Face: No acute fracture in the nasal bones, osseous nasal septum or anterior nasal spine. Zygomatic arches, maxillary sinus hirsch and orbits are intact. No globe injury. Prior lens surgery. No retrobulbar hematoma. The temporomandibular joints are normal in alignment, and there is no mandibular fracture. Cervical spine: No acute fracture or traumatic malalignment. No high-grade spinal stenosis. Multilevel degenerative disc disease. No retropharyngeal fluid collection. There is a stent present within the right proximal internal carotid artery. Emphysema is noted in the lung apices. IMPRESSION: 1. No acute intracranial hemorrhage or skull fracture. Left supraorbital scalp swelling. 2. No acute fracture of the midface or mandible. 3. No acute fracture within the cervical spine. Dictated by: Dictated on workstation # [id number]
[2022-04-28 21:17] LABS: BASOPHILS # (AUTO) 0.1 10^3/uL (0.0-0.1); BASOPHILS % (AUTO) 1 % (0-10); EOSINOPHILS # (AUTO) 0.5 10^3/uL (0.0-0.3); EOSINOPHILS % (AUTO) 8 % (0-10); HEMATOCRIT 41 % (40-54); LYMPHOCYTES # (AUTO) 1.1 10^3/uL (1.0-4.0); LYMPHOCYTES % (AUTO) 19 % (12-44); MEAN CORPUSCULAR HEMOGLOBIN 28 pg (25-34); MEAN CORPUSCULAR HGB CONC 32 g/dL (32-36); MEAN CORPUSCULAR VOLUME 90 fL (80-99); MEAN PLATELET VOLUME 10.8 fL (9.0-12.2); MONOCYTES # (AUTO) 0.7 10^3/uL (0.0-1.0); MONOCYTES % (AUTO) 12 % (0-12); NEUTROPHILS # (AUTO) 3.4 10^3/uL (1.8-7.8); NEUTROPHILS % (AUTO) 60 % (42-75); PLATELET COUNT 238 10^3/uL (130-400); WHITE BLOOD COUNT 5.7 10^3/uL (4.3-11.0)
[2022-04-28] MEDS ORDERED: DOXY100T2 PO (21:22)
[2022-04-28] MEDS ORDERED: CEFD300C3 PO (21:22)
[2022-04-28 21:26] LABS: POTASSIUM 3.4 MMOL/L (3.6-5.0)
[2022-04-28 21:28] LABS: CALCIUM 10.7 MG/DL (8.5-10.1)
[2022-04-28] MEDS ORDERED: cefTRIAXone 1,000 MG VIAL IM ONE (21:30)
[2022-04-28] MEDS ORDERED: DOXYCYCLINE 100 MG (VIBRAMYCIN) TABLET PO SCH (21:30)
[2022-04-28] MEDS ORDERED: LIDOCAINE 1% INJ 20 ML VIAL INJ ONE (21:30)
[2022-04-28 21:32] LABS: CREATININE SERUM 2.68 MG/DL (0.60-1.30)
[2022-04-28 22:07] VITALS: BP 158/100
== END 2022-04-28 22:10 | disposition home or self-care (01) ==
LOC: EDUNIT# 20:02 → ER 20:03
DX: S00.12XA Contusion of left eyelid and periocular area, initial encounter (principal); J18.9 Pneumonia, unspecified organism; J44.9 Chronic obstructive pulmonary disease, unspecified; I12.0 Hypertensive chronic kidney disease with stage 5 chronic kidney disease or end stage renal disease; N18.6 End stage renal disease; Z99.2 Dependence on renal dialysis; Z99.81 Dependence on supplemental oxygen; Z88.0 Allergy status to penicillin; Z28.310 Unvaccinated for COVID-19; W18.30XA Fall on same level, unspecified, initial encounter; W22.03XA Walked into furniture, initial encounter
CPT/HCPCS: 36415; 70450; 70486; 71045; 72125; 72170; 80048; 85025; 85027